=== PATIENT | female | born 1960 | race Hispanic/Latino ===

== ENCOUNTER 2019-08-01 06:53 | Observation (INO) | payer OTHER ==
[2019-07-29 10:02] VITALS: BP 148/64
[2019-07-29 10:04] LABS: BASOPHILS % (AUTO) 1.1 % (0.0-5.0); EOSINOPHILS % (AUTO) 2.5 % (0.0-8.0); HEMATOCRIT 37.8 % (36-48); LYMPHOCYTES % (AUTO) 24.8 % (21.0-51.0); MEAN CORPUSCULAR HEMOGLOBIN 29.4 pg (27.0-33.0); MEAN CORPUSCULAR HGB CONC 33.3 g/dL (32.0-36.0); MEAN CORPUSCULAR VOLUME 88.2 fL (79-99); MONOCYTES % (AUTO) 5.6 % (3.0-13.0); PLATELET COUNT (AUTO) 196 K/uL (130-400); RED BLOOD CELL COUNT(AUTO) 4.29 MIL/uL (4.00-5.50); RED CELL DISTRIBUTION WIDTH 13.6 % (11.0-15.5); WHITE BLOOD COUNT (AUTO) 6.8 K/uL (4.8-10.8)
[2019-07-29 10:23] LABS: CREATININE 0.8 mg/dL (0.5-1.5); POTASSIUM 4.4 mmol/L (3.5-5.1)
[2019-07-29 10:26] LABS: INR 0.96 (0.85-1.15); PROTHROMBIN TIME 10.1 SEC (9.6-11.6)
[2019-08-01] VITALS (24 sets, daily range): BP systolic 107–164; BP diastolic 41–73
[~2019-08-01] VITALS: Ht 236.2 cm; Wt 92.4 kg
[2019-08-01] MEDS: CEFAZOLIN SODIUM 1 GM VIAL IVP SCH ×3 (06:00→17:50)
[~2019-08-01 06:53] MED LIST: CEFU250T87 PO; DOCU-133 PO; ESCI20TA36 PO; FENO160T16 PO; LEVO100 PO; METF-526 PO; NAPR-1023 PO; OLME1TAB40 PO; OMEP40CA37 PO; OXYB5TAB4 PO; SIMV20TA6 PO
[2019-08-01] MEDS ORDERED: SODIUM CHLORIDE 0.9% 1000ML 1,000 ML IV ONE (08:00)
[2019-08-01 08:15] LABS: APPEARANCE,URINE Clear (CLEAR); BILIRUBIN,URINE Negative (NEGATIVE); COLOR,URINE Yellow (YELLOW); GLUCOSE, URINE (UA) Negative (NEGATIVE); KETONES,URINE Negative (NEGATIVE); LEUKOCYTE ESTERASE ,URINE Trace (NEGATIVE); NITRATE,URINE Negative (NEGATIVE); OCCULT BLOOD,URINE Negative (NEGATIVE); PH,URINE 6.5 (5.0-8.0); PROTEIN,URINE Negative (NEGATIVE)
[2019-08-01 08:28] LABS: BACTERIA,URINE Rare /HPF (None Seen); MUCUS,URINE Few LPF (None Seen); RBC,URINE 0-1 /HPF (0-1); SQUAMOUS EPITHELIAL CELL,UR Rare /HPF (0-2)
[2019-08-01] MEDS ORDERED: METOCLOPRAMIDE 10 MG/2 ML VIAL ONE (08:37)
[2019-08-01] MEDS ORDERED: ACETAMINOPHEN EXTRA STRENGTH 500 MG TABLET ONE (08:37)
[2019-08-01] MEDS ORDERED: CELECOXIB 200 MG CAP ONE (08:37)
[2019-08-01] MEDS ORDERED: KETOROLAC TROMETHAMINE 15MG/ML ONE (08:37)
[2019-08-01] MEDS ORDERED: OXYCODONE HCL 10 MG TAB.SR.12H PO ONE (08:38)
[2019-08-01] MEDS ORDERED: CEFAZOLIN SODIUM 1 GM VIAL ONE ×3 (08:59→12:16)
[2019-08-01] MEDS ORDERED: GENTAMICIN SULFATE 240 MG in SODIUM CHLORIDE 0.9% 100 ML IV ONE (09:30)
[2019-08-01] MEDS ORDERED: TRANEXAMIC ACID 1000MG/10ML IV ONE ×2 (10:13→13:35)
[2019-08-01] MEDS ORDERED: LIDOCAINE PF 2% 5ML ABBOJECT ONE ×2 (10:17→12:50)
[2019-08-01] MEDS ORDERED: PROPOFOL 10 MG/ML 20ML VIAL IV ONE (10:18)
[2019-08-01] MEDS ORDERED: MIDAZOLAM HCL 1 MG/ML 2ML VIAL ONE (10:18)
[2019-08-01] MEDS ORDERED: ROCURONIUM 10MG/1ML SYR 10 MG/ML ML ONE (10:18)
[2019-08-01] MEDS ORDERED: FENTANYL CITRATE PF 50 MCG/1 ML 5ML AMP IV ONE ×2 (10:19→12:31)
[2019-08-01] MEDS ORDERED: ROPIVACAINE 0.5% 5MG/ML 30ML IJ ONE (10:29)
[2019-08-01] MEDS ORDERED: EPHEDRINE SULFATE 50 MG/ML AMPULE ONE (10:35)
[2019-08-01] MEDS ORDERED: ONDANSETRON HCL 4 MG/2 ML VIAL ONE (11:43)
[2019-08-01] MEDS ORDERED: DEXAMETHASONE SOD PHOSPHATE 10MG/ML 1ML VIAL ONE (11:43)
[2019-08-01] MEDS ORDERED: NEOSTIGMINE 5MG/5ML SYR IV ONE (11:43)
[2019-08-01] MEDS ORDERED: GLYCOPYRROLATE 1 MG/5 ML SYRINGE ONE (11:43)
[2019-08-01] MEDS ORDERED: KETOROLAC TROMETHAMINE 30MG/ML ONE (11:43)
[2019-08-01] MEDS: ACETAMINOPHEN EXTRA STRENGTH 500 MG TABLET PO SCH ×2 (12:45→19:43)
[2019-08-01] MEDS ORDERED: TRAMADOL HCL 50 MG TABLET PO PRN (12:45)
[2019-08-01] MEDS ORDERED: TEMAZEPAM 15 MG CAPSULE PO PRN (12:45)
[2019-08-01] MEDS ORDERED: CALCIUM CARBONATE 500 MG TABLET PO PRN (12:45)
[2019-08-01] MEDS ORDERED: DiphenhydrAMINE HCL 50 MG/ML VIAL IVP PRN (12:45)
[2019-08-01] MEDS ORDERED: ONDANSETRON HCL 4 MG/2 ML VIAL IVP PRN (12:45)
[2019-08-01] MEDS ORDERED: LIDOCAINE HCL-MPF 1% 2ML VIAL IV PRN (12:45)
[2019-08-01] MEDS ORDERED: KETOROLAC TROMETHAMINE 15MG/ML IV PRN (12:45)
[2019-08-01] MEDS ORDERED: POTASSIUM CHLORIDE 20 MEQ ERTAB PO PRN (12:45)
[2019-08-01] MEDS ORDERED: POTASSIUM CHLORIDE 10% ELIXIR 20 MEQ/15 ML UDCUP PO PRN (12:45)
[2019-08-01] MEDS ORDERED: FERROUS FUMARATE 324 MG TABLET PO PRN (12:45)
[2019-08-01] MEDS ORDERED: POTASSIUM CHLORIDE 20MEQ/100ML 100 ML IV PRN (12:45)
--- NOTE | 2019-08-01 14:12 | NUR ---
POST SURGERY PATIENT RECEIVED FROM PACU IN STABLE CONDITION. SHE HAS BEEN ORIENTED TO ROOM AND USE OF CALL LIGHT. BED IS IN LOWEST POSITION AND LOCKED WITH PERSONAL BELONGINGS WITHIN REACH. POST OP V/S HAVE BEEN INITIATED. IV IS PATENT WITH NO REDNESS OR SWELLING NOTED TO SITE. WILL CONTINUE TO MONITOR.
[2019-08-01] MEDS: SODIUM CHLORIDE 0.9% 1000ML 1,000 ML IV SCH ×2 (14:34→22:39)
[2019-08-01] MEDS: INSULIN HUMULIN R 100 UNIT/ML 3ML SQ SCH ×2 (16:35→21:00)
[2019-08-01] MEDS: OXYCODONE HCL 5 MG TAB PO PRN ×2 (18:01→21:38)
[2019-08-01] MEDS: FAMOTIDINE 20MG TAB 20 MG TAB PO SCH (19:41)
[2019-08-01] MEDS: CELECOXIB 200 MG CAP PO SCH (19:41)
[2019-08-01] MEDS: PREGABALIN 25 MG CAP PO SCH (19:41)
[2019-08-01] MEDS ORDERED: DOCUSATE SODIUM 100 MG CAP PO SCH (21:00)
[2019-08-01] MEDS ORDERED: SIMVASTATIN 20 MG TABLET PO SCH (21:00)
[2019-08-01] MEDS ORDERED: CITALOPRAM 20 MG TABLET PO SCH (21:53)
[2019-08-01] MEDS ORDERED: METFORMIN HCL 500 MG TAB.SR.24H PO SCH (21:54)
[2019-08-02] MEDS: CEFAZOLIN SODIUM 1 GM VIAL IVP SCH (01:51)
[2019-08-02] MEDS: OXYCODONE HCL 5 MG TAB PO PRN ×3 (01:51→16:40)
[2019-08-02 03:10] VITALS: BP 122/50
[2019-08-02 04:20] LABS: HEMATOCRIT 30.5 % (36-48); MEAN CORPUSCULAR HEMOGLOBIN 29.5 pg (27.0-33.0); MEAN CORPUSCULAR HGB CONC 33.3 g/dL (32.0-36.0); MEAN CORPUSCULAR VOLUME 88.5 fL (79-99); PLATELET COUNT (AUTO) 160 K/uL (130-400); RED BLOOD CELL COUNT(AUTO) 3.44 MIL/uL (4.00-5.50); RED CELL DISTRIBUTION WIDTH 13.5 % (11.0-15.5)
[2019-08-02] MEDS: ACETAMINOPHEN EXTRA STRENGTH 500 MG TABLET PO SCH ×2 (04:31→12:22)
[2019-08-02 04:50] LABS: CREATININE 0.8 mg/dL (0.5-1.5); POTASSIUM 4.1 mmol/L (3.5-5.1)
[2019-08-02] MEDS: INSULIN HUMULIN R 100 UNIT/ML 3ML SQ SCH ×3 (06:10→16:30)
[2019-08-02] MEDS ORDERED: LEVOTHYROXINE 100 MCG TABLET PO SCH (06:30)
[2019-08-02 07:54] VITALS: BP 140/57
[2019-08-02] MEDS: CELECOXIB 200 MG CAP PO SCH (08:26)
[2019-08-02] MEDS: FAMOTIDINE 20MG TAB 20 MG TAB PO SCH (08:26)
[2019-08-02] MEDS: PREGABALIN 25 MG CAP PO SCH (08:29)
--- NOTE | 2019-08-02 08:30 | NUR ---
PT STATES SHE FEELS A BIT DIZZY WILL WAIT ON LYRICA , PT STATES SHE HAS NEVER TAKEN LYRICA BEFORE
[2019-08-02] MEDS ORDERED: POLYETHYLENE GLYCOL 3350 17 GM POWD.PACK PO SCH (09:00)
[2019-08-02] MEDS ORDERED: OXYBUTYNIN 5 MG TAB.SR.24H PO SCH (09:00)
[2019-08-02] MEDS ORDERED: APIXABAN 2.5 MG TABLET PO SCH (09:00)
[2019-08-02] MEDS ORDERED: HYDROCHLOROTHIAZIDE PO SCH (09:00)
[2019-08-02] MEDS ORDERED: PANTOPRAZOLE SODIUM 40 MG TABLET.DR PO SCH (09:00)
[2019-08-02] MEDS ORDERED: OLMESARTAN PO SCH (09:00)
[2019-08-02] MEDS ORDERED: FENOFIBRATE 160 MG PO SCH (09:00)
[2019-08-02] MEDS ORDERED: [UNRECOGNIZED DRUG - OTHER] PO SCH (09:00)
--- NOTE | 2019-08-02 10:08 | NUR ---
DCP CM met with pt discussed dc plans. Pt is independent prior to surgery, lives at home with spouse, son, and grandchildren. Pt states she has a shower chair at home. Feels safe to go back home, spouse and son able to assist with transportation and needs as necessary. Pt agreeable for home w/HH and DME, MULU signed for [facility] and [facility] for standard walker and 3 i n1 chair. Faxed order and clinicals, confirmation received. Pt pending approval for [facility], approval and delivery from [facility]. DC plan to home w/HH and DME. CM to cont to follow up. Addendum: 08/02/19 at 1014 by MARK WALKER LVN CM Amended: Links added.
[2019-08-02 11:35] VITALS: BP 145/66
--- NOTE | 2019-08-02 12:55 | NUR ---
CM Note: [facility] approved pt pending to arrange copay and delivery Spoke to Chelly velasquez/[facility] pt has approval for standard walker no wheels and 3 i n1 chair, pending pt to arranged copay of $18. Will deliver equipments once pt arranged copay. Primary nurse aware. CM to co nt to follow up.
--- NOTE | 2019-08-02 12:59 | NUR ---
CM Note: pending approval Spoke to Meaghan velasquez/ , stated Lucina currently out to lunch at this time but will be back shortly, will call CM back as soon as she's back. Pt pending approval. Primary nurse aware. CM to cont to follow up.
--- NOTE | 2019-08-02 14:17 | NUR ---
CM Note: [facility] approved and acceptance Spoke to Lucina velasquez/[facility]. Pt has approval and acceptance. Primary nurse aware. CM to cont to follow up.
--- NOTE | 2019-08-02 14:28 | NUR ---
CM Note: [facility] approved en route to be delivered at this time. Spoke to Karie velasquez/[facility] approved for standard walker and 3 in 1 chair, drive en route to have equipments delivered at this time. As per Karie GANN withink 1 hr. Primary nurse made aware. Pt safe to DC to home via private car once DME delivered. CM to cont to follow up.
--- NOTE | 2019-08-02 14:30 | NUR ---
DR. MINER AWARE PT ACCEPTED FOR [facility]
--- NOTE | 2019-08-02 14:58 | NUR ---
DR LALA SANCHEZ Addendum: 08/02/19 at 1758 by AWILDA VAUGHN RN WRONG PT
[2019-08-02 16:08] VITALS: BP 147/50
[2019-08-02] MEDS ORDERED: HYDR-4457 PO (16:40)
[2019-08-02] MEDS ORDERED: APIX2.5T PO (16:40)
--- NOTE | 2019-08-02 17:43 | NUR ---
[facility] PAGED, PENDING CALL BACK TO GIVE REPORT
--- NOTE | 2019-08-02 18:16 | NUR ---
JEREMIAH - NURSE, GIVEN FULL SBAR REPORT INSTRUCTIONS ON DRESSING CHANGES DONE EDUCATION ON MEDICATIONS DONE REFER TO D/C ORDERS
[2019-08-04] MEDS ORDERED: BISACODYL 10 MG SUPP.RECT RC PRN (12:45)
== END 2019-08-02 18:59 | disposition home health service (06) ==
LOC: DAH 06:53 → DAHIP 06:54 → 4AH 14:24
PROVIDERS: ADMIT Orthopaedic Surgery; ATTEND Orthopaedic Surgery
DX: M17.12 Unilateral primary osteoarthritis, left knee (principal); I10 Essential (primary) hypertension; E11.9 Type 2 diabetes mellitus without complications; E78.5 Hyperlipidemia, unspecified; E03.9 Hypothyroidism, unspecified; E66.9 Obesity, unspecified
CPT/HCPCS: 27447; 36415 ×2; 80048 ×2; 81001; 82948 ×7; 85025; 85027; 85610; 87088; 87641; 88304; 88311; 96365; 96372; 96375 ×2; 96376; 97039; 97116 ×2; 97161; 97530; A4649 ×6; A4930 ×3; A5120; C1763; C1776; G0168; G0378 ×30; G8978; G8979; G8980; G8981; G8982; G8983; J0690 ×6; J1100; J1580; J1815; J1885 ×3; J2001 ×2; J2250; J2405; J2704; J2710; J2765; J2795; J3010 ×2; J3490 ×4; J7030 ×3; 96374

== ENCOUNTER 2019-08-08 18:34 | Emergency (ER) | payer OTHER ==
[~2019-08-08 18:34] MED LIST changes: +APIX2.5T PO; -CEFU250T87 PO; +HYDR-4457 PO; -NAPR-1023 PO
[2019-08-08 19:17] LABS: EOSINOPHILS % (AUTO) 1.9 % (0.0-8.0); LYMPHOCYTES % (AUTO) 16.9 % (21.0-51.0); MEAN CORPUSCULAR HEMOGLOBIN 29.8 pg (27.0-33.0); MEAN CORPUSCULAR HGB CONC 33.7 g/dL (32.0-36.0); MEAN CORPUSCULAR VOLUME 88.6 fL (79-99); MONOCYTES % (AUTO) 8.9 % (3.0-13.0); NEUTROPHILS % (AUTO) 71.3 % (40.0-77.0); PLATELET COUNT (AUTO) 242 K/uL (130-400); RED CELL DISTRIBUTION WIDTH 13.9 % (11.0-15.5); WHITE BLOOD COUNT (AUTO) 10.6 K/uL (4.8-10.8)
[2019-08-08 19:22] LABS: CARBON DIOXIDE 28 mmol/L (21-32); CHLORIDE 101 mmol/L (101-111); CREATININE 0.8 mg/dL (0.5-1.5); GLOMERULAR FILTR. RATE CALC 78 mL/min (>60); GLUCOSE,RANDOM 133 mg/dL (70-105); SODIUM SERUM 139 mmol/L (136-145); UREA NITROGEN, BLOOD 19 mg/dL (7-18)
[2019-08-08 19:34] LABS: ALANINE AMINOTRANSFERASE 20 U/L (12-78); ALBUMIN 3.3 g/dL (3.5-5.0); ASPARTATE AMINOTRANSFERASE 19 U/L (10-37); BILIRUBIN,TOTAL 0.6 mg/dL (0.2-1.0); CREATINE KINASE, TOTAL 42 U/L (21-232); MYOGLOBIN 33 ng/mL (10-92); TOTAL PROTEIN, SERUM 7.1 g/dL (6.0-8.3); TROPONIN I < 0.04 ng/mL (0.00-0.06)
[2019-08-08 19:35] LABS: INR 0.91 (0.85-1.15); PARTIAL THROMBOPLASTIN TIME 23.6 SEC (26.3-35.5); PROTHROMBIN TIME 9.6 SEC (9.6-11.6)
[2019-08-08 19:52] LABS: APPEARANCE,URINE Clear (CLEAR); BILIRUBIN,URINE Negative (NEGATIVE); COLOR,URINE Yellow (YELLOW); GLUCOSE, URINE (UA) Negative (NEGATIVE); KETONES,URINE Negative (NEGATIVE); LEUKOCYTE ESTERASE ,URINE Trace (NEGATIVE); NITRATE,URINE Negative (NEGATIVE); OCCULT BLOOD,URINE Negative (NEGATIVE); PROTEIN,URINE Negative (NEGATIVE)
[2019-08-08 20:07] LABS: BACTERIA,URINE Rare /HPF (None Seen); MUCUS,URINE None Seen LPF (None Seen); SQUAMOUS EPITHELIAL CELL,UR 0-2 /HPF (0-2)
[2019-08-08] MEDS ORDERED: ONDANSETRON HCL 4 MG/2 ML VIAL ONE (20:09)
[2019-08-08] MEDS ORDERED: MORPHINE SULFATE 2 MG/ML 1ML SYG ONE (20:10)
== END 2019-08-08 21:39 | disposition home or self-care (01) ==
LOC: EDH 18:34
DX: G89.18 Other acute postprocedural pain (principal); M25.562 Pain in left knee; R50.9 Fever, unspecified; E11.9 Type 2 diabetes mellitus without complications; I10 Essential (primary) hypertension; E78.00 Pure hypercholesterolemia, unspecified; Z96.653 Presence of artificial knee joint, bilateral
CPT/HCPCS: 36415; 71045; 80053; 81001; 82248; 82550; 83605; 83874; 84484; 85025; 85610; 85730; 87040; 87088; 87804 ×2; 93005; 93971; 96374; 96375; 99285; J2405

== ENCOUNTER 2024-11-26 13:26 | Inpatient (IN) | payer OTHER ==
[2024-11-26] VITALS (18 sets, daily range): BP systolic 112–149; BP diastolic 36–66; PULSE 46–59; RESP 13–26; TEMP 98.2; O2SAT 95–99
[~2024-11-26] VITALS: Ht 149.9 cm; Wt 92.1 kg
[~2024-11-26 13:26] MED LIST changes: -ESCI20TA36 PO; +ESCI20TA38 PO; +OLME-29 PO; -OLME1TAB40 PO; +OMEP40CA21 PO; -OMEP40CA37 PO; +OXYB-66 PO; -OXYB5TAB4 PO; +SIMV-43 PO; -SIMV20TA6 PO
[2024-11-26 14:12] LABS: BASOPHILS # (AUTO) 0.08 K/uL (0.00-0.20); BASOPHILS % (AUTO) 0.9 % (0.0-5.0); EOSINOPHILS # (AUTO) 0.15 K/uL (0.00-0.70); EOSINOPHILS % (AUTO) 1.6 % (0.0-8.0); IMMATURE GRANULOCYTE ABSOLUTE 0.03 K/uL (0-1); LYMPHOCYTES # (AUTO) 1.5 K/uL (1.0-4.8); LYMPHOCYTES % (AUTO) 16.2 % (21.0-51.0); MEAN CORPUSCULAR HEMOGLOBIN 28.9 pg (27.0-33.0); MEAN CORPUSCULAR HGB CONC 32.4 g/dL (32.0-36.0); MEAN CORPUSCULAR VOLUME 89.2 fL (79-99); MONOCYTES # (AUTO) 0.5 K/uL (0.1-1.0); MONOCYTES % (AUTO) 5.7 % (3.0-13.0); NEUTROPHILS # (AUTO) 6.9 K/uL (1.8-7.7); NEUTROPHILS % (AUTO) 75.3 % (40.0-77.0); PLATELET COUNT (AUTO) 209 K/uL (130-400); RED BLOOD CELL COUNT(AUTO) 4.15 MIL/uL (4.00-5.50); RED CELL DISTRIBUTION WIDTH 12.9 % (11.0-15.5); WHITE BLOOD COUNT (AUTO) 9.2 K/uL (4.8-10.8)
--- NOTE | 2024-11-26 14:12 | ERN ---
ED Note History of Present Illness Stated Complaint: UNCONTROLLED HIGH BP Chief Complaint: Hypertension Time Seen by MD: 14:07 Dictation: Patient is a 64-year-old obese female with a complaint right shoulder pain she has had non trauma for two weeks. Also states she is having severe left wrist pain she has had for two months. And needs carpal tunnel surgery by . In addition she says her blood pressure has been high, takes losartan 20/12.5 daily and took it this morning. Finally said her blood sugar has been h igh and she takes her diabetic medications however has not been able to control it she does not have an appointment with her doctor until 11/30/2024. She states she was seen at the emergency room in [facility] yesterday and they did nothing to help me. PATIENT ALSO STATES SHE SIGNED OUT AGAINST MEDICAL ADVICE FROM [facility] YESTERDAY. SHE STATES HER BLOOD PRESSURE THERE WAS GREATER THAN 240 AND THEY HAD HER ON A DRIP THAT WAS BRINGING IT DOWN AND THEN SHE SIGNED OUT AGAINST WHEN IT WENT DOWN TO 160. Allergies: Coded Allergies: No Known Drug Allergies (Unverified Allergy, Unknown, 07/29/19) Home Meds Active Scripts Hydrocodone/Acetaminophen ([place] 5-325 Tablet) 1 Each Tablet, 1-2 EACH PO Q6HPRN PRN for pain, #60 TAB Prov:PHONG MINER MD 08/02/19 Apixaban (Eliquis) 2.5 Mg Tablet, 2.5 MG PO BID, #40 TAB Prov:PHONG MINER MD 08/02/19 Reported Medications Levothyroxine Sodium (Levothroid/Synthroid) 100 Mcg Tab, 100 MCG PO DAILY, TAB 07/29/19 Docusate Sodium (Dulcolax Stool Softener) 100 Mg Capsule, 100 MG PO HS, CAP 07/29/19 Simvastatin (Simvastatin) 20 Mg Tablet, 20 MG PO HS, TAB 07/29/19 Metformin HCl (Metformin HCl ER) 500 Mg Tab.er.24, 500 MG PO HS 07/29/19 Fenofibrate (Fenofibrate) 160 Mg Tablet, 160 MG PO DAILY, TAB 07/29/19 Oxybutynin Chloride (Oxybutynin Chloride ER) 5 Mg Tab.er.24, 5 MG PO DAILY 07/29/19 Escitalopram Oxalate (Escitalopram Oxalate) 20 Mg Tablet, 20 MG PO HS, TAB 07/29/19 Olmesartan/Hydrochlorothiazide (Olmesartan-Hctz 20-12.5 mg Tab) 1 Each Tablet, 1 EACH PO DAILY, TAB 07/29/19 Omeprazole (Omeprazole) 40 Mg Capsule.dr, 40 MG PO DAILY, CAP 07/29/19 Past Medical History Past Medical History: Arthritis, Diabetes-Type II, High Cholesterol, Hypertension Additional Past Medical Hx: CHRONIC BACK/KNEE PAIN Surgical History: Hysterectomy, Cholecystectomy Surgical History Other: BACK, KNEE, SHOUDER History: Not Applicable RN Note Reviewed/Agreed w/PFSH: Yes Review of System Dictation CONSTITUTIONAL: Negative except for HPI HEAD/FACE: Negative except for HPI EENT: Negative except for HPI RESPIRATORY: Negative except for HPI GASTROINTESTINAL/ABDOMINAL: Negative except for HPI GENITOURINARY: Negative except for HPI MUSCULOSKELETAL: Negative except for HPI left wrist and right lateral shoulder pain INTEGUMENTARY: Negative except for HPI NEUROLOGICAL/PSYCH: Negative except for HPI HEMATOLOGIC/LYMPHATIC: Negative except for HPI All Systems Negative, Except as noted above. 13 point review of systems assessed and all negative except for above. Initial Vital Sign VS Vital Signs Date Time Temp Pulse Resp B/P (MAP) Pulse Ox O2 Delivery O2 Flow Rate FiO2 11/26/24 13:41 98.8 69 16 228/93 97 Room Air 0 11/26/24 13:45 21 Physical Exam Dictation Vital Signs reviewed General Appearance: Alert, oriented x 3, moderate, tearful acute distress, well developed, nourished. Morbidly obese Head and Face: non-traumatic. Eyes: PERRL, pink conjunctivas, eyelid no trauma, anterior chamber with arcus senilis. Ears: Pinnas intact and no signs of trauma or erythema ear canals clear and no discharge TM no erythema Nose: No discharge, no bleeding. Oropharynx: Mouth normal, tongue pink, pharynx clear,no erythema, tonsils no exudates, no abscesses noted, mucous membrane moist Neck: Supple, non-tender, no thyromegaly, no masses, no JVD, no bruits Breast:Deferred Chest:No tenderness, no crepitus, no paradoxical movement, no retractions Lungs:Clear, well-ventilated, symmetric, no rales, no wheezing, no rhonchi, no stridor, good breath sounds bilaterally Heart: Regular rate, regular rhythm, no murmur, no gallops Vascular: no peripheral edema, Abdomen: Soft, positive bowel sounds, nondistended, no guarding, nontender, no rebound, no masses no hepatomegaly, no splenomegaly, no Brown's sign, no hernias. Rectal: Deferred Genital: Deferred Neurological: Normal speech, motor function intact, sensory function intact Musculoskeletal: Neck nontender, full range of motion, back nontender, full range of motion, Extremities: Right lateral posterior humerus and shoulder tenderness with palpation, wrists splint to left wrist intact. Neurovascular CMS intact to all extremities. Skin: Color pink, dry, no turgor, no rash, no lacerations, no abrasions, no contusions. Lymphatic: Deferred Results (Laboratory/Radiology) Laboratory/Radiology Laboratory Tests Test 11/26/24 14:00 11/26/24 14:50 11/26/24 17:00 11/26/24 17:03 White Blood Count 9.2 K/uL (4.8-10.8) Red Blood Count 4.15 MIL/uL (4.00-5.50) Hemoglobin 12.0 g/dL (12.0-16.0) Hematocrit 37.0 % (36-48) Mean Corpuscular Volume 89.2 fL (79-99) Mean Corpuscular Hemoglobin 28.9 pg (27.0-33.0) Mean Corpuscular Hemoglobin Concent 32.4 g/dL (32.0-36.0) Red Cell Distribution Width 12.9 % (11.0-15.5) Platelet Count 209 K/uL (130-400) Mean Platelet Volume 12.5 fL (7.5-10.5) H Immature Granulocyte % (Auto) 0.3 % (0-1) Neutrophils (%) (Auto) 75.3 % (40.0-77.0) Lymphocytes (%) (Auto) 16.2 % (21.0-51.0) L Monocytes (%) (Auto) 5.7 % (3.0-13.0) Eosinophils (%) (Auto) 1.6 % (0.0-8.0) Basophils (%) (Auto) 0.9 % (0.0-5.0) Neutrophils # (Auto) 6.9 K/uL (1.8-7.7) Lymphocytes # (Auto) 1.5 K/uL (1.0-4.8) Monocytes # (Auto) 0.5 K/uL (0.1-1.0) Eosinophils # (Auto) 0.15 K/uL (0.00-0.70) Basophils # (Auto) 0.08 K/uL (0.00-0.20) Absolute Immature Granulocyte (auto 0.03 K/uL (0-1) Nucleated Red Blood Cells 0.0 % (0.0-0.19) Sodium Level 137 mmol/L (136-145) Potassium Level 4.1 mmol/L (3.5-5.1) Chloride Level 100 mmol/L (101-111) L Carbon Dioxide Level 25 mmol/L (21-32) Blood Urea Nitrogen 15 mg/dL (7-18) Creatinine 0.8 mg/dL (0.5-1.0) Glomerular Filtration Rate Calc 82 mL/min (>90) Random Glucose 388 mg/dL (70-105) H Hemoglobin A1c 9.9 % (4.0-6.0) H Estimated Average Glucose (eAG) 237 mg/dL (70-126) H Total Calcium 8.8 mg/dL (8.5-10.1) Troponin I High Sensitivity 9 ng/L (4-50) Urine Color STRAW (YELLOW) Urine Appearance CLEAR (CLEAR) Urine pH 5.5 (5.0-8.0) Urine Specific [place] 1.024 (1.001-1.031) Urine Protein NEGATIVE mg/dL (NEGATIVE) Urine Glucose (UA) >=1000 mg/dL (NEGATIVE) H Urine Ketones NEGATIVE mg/dL (NEGATIVE) Urine Occult Blood NEGATIVE (NEGATIVE) Urine Nitrate NEGATIVE (NEGATIVE) Urine Bilirubin NEGATIVE mg/dL (NEGATIVE) Urine Urobilinogen 0.2 mg/dL (0.2-1.0) Urine Leukocyte Esterase NEGATIVE Genesis/uL Urine RBC 0-1 /HPF (0-1) Urine WBC 0-1 /HPF (0-1) Urine Squamous Epithelial Cells RARE /HPF (0-2) Urine Bacteria None /HPF (None Seen) Whole Blood Glucose 170 MG/DL (70-110) H 224 MG/DL (70-110) H ROCEDURE: SHOL 2V RT - SHOULDER COMP 2+VWS RT SHOULDER COMP 2+VWS RT CLINICAL HISTORY: Right lateral shoulder pain, non trauma two weeks COMPARISON: None TECHNIQUE: 2 images were obtained. FINDINGS: No obvious fracture or dislocation. No joint effusion. The soft tissues appear unremarkable. No radiopaque foreign bodies. IMPRESSION: No acute findings. CHEST 1VW CLINICAL HISTORY: ARM PAIN COMPARISON: 08/08/2019 TECHNIQUE: Single view of the chest was obtained. FINDINGS: Lungs are clear. The cardiac size and mediastinum are unremarkable. The bony structures are within normal limits. IMPRESSION: No acute cardiopulmonary process identified. Labs Reviewed?: Yes EKG Comment: EKG SINUS RHYTHM/HEART RATE 78/AXIS NORMAL/QT INTERVAL 502 MILLISECOND ED Course ED Course Orders Procedure Category Date Status Time 12 Lead Ekg Tracing- EKG 11/26/24 Resulted Technical 13:46 Chest 1vw RAD 11/26/24 Resulted 13:46 Cbc With Differential LAB 11/26/24 Complete 13:46 Basic Metabolic Panel LAB 11/26/24 Complete 13:46 Urinalysis Profile LAB 11/26/24 Complete 13:46 Troponin I High LAB 11/26/24 Complete Sensitivity 13:46 Ketorolac PHA 11/26/24 Complete Tromethamine 30mg/Ml 14:30 Morphine 2mg Syg PHA 11/26/24 Complete (Morphine 2mg Syg) 14:30 Ondansetron 4mg Inj PHA 11/26/24 Complete (Zofran 4mg Inj) 14:30 Clonidine Hcl 0.2 Mg PHA 11/26/24 Complete Tablet (Catapres 0. 14:30 Shoulder Comp 2+Vws Rt RAD 11/26/24 Resulted 14:09 Insulin Regular, PHA 11/26/24 Complete Human 3ml (Humulin R 14:49 0.9% Nacl 500ml PHA 11/26/24 Complete Iv.Soln (Ns 500ml 15:00 Nicardipine 25mg Inj PHA 11/26/24 In Process (Cardene 25mg Inj) 15:30 Nicardipine 25mg Inj PHA 11/26/24 Complete (Cardene 25mg Inj) 15:37 Edm Admit Bridge Order ADM 11/26/24 Transmitted 16:02 Vital Signs(Adult CPOE 11/26/24 Transmitted Hospitalist) 16:23 Acetaminophen 325 Tab PHA 11/26/24 In Process (Tylenol 325mg Tab 16:30 Acetaminophen 325 Tab PHA 11/26/24 In Process (Tylenol 325mg Tab 16:30 Ondansetron 4mg Inj PHA 11/26/24 In Process (Zofran 4mg Inj) 16:30 Nurse To Enter Home CPOE 11/26/24 Transmitted Medication 16:23 Admit Orders ADM 11/26/24 Transmitted 16:23 Activity: Bedrest CPOE 11/26/24 Transmitted With Brp 16:23 Consistent Carb DIET 11/26/24 Transmitted Dinner Apply Scds CPOE 11/26/24 Transmitted 16:23 Comprehensive LAB 11/27/24 Verified Metabolic Panel 04:00 Cbc With Differential LAB 11/27/24 Verified 04:00 Erythrocyte LAB 11/27/24 Verified Sedimentation Rate 04:00 Hemoglobin A1c LAB 11/26/24 Complete 16:23 *Nursing CPOE 11/26/24 Transmitted Communication: 16:23 Enoxaparin Sodium 40 PHA 11/27/24 In Process Mg/0.4 Ml (Lovenox) 09:00 Morphine 2mg Syg PHA 11/26/24 In Process (Morphine 2mg Syg) 16:30 0.9%Nacl 1000ml (Ns PHA 11/26/24 In Process 1000ml) 16:30 Hydromorphone 1 Mg PHA 11/26/24 In Process Inj (Dilaudid 1mg Inj 16:30 Famotidine 20mg Vial PHA 11/26/24 In Process (Pepcid 20mg Vial) 21:00 Acetaminophen With PHA 11/26/24 In Process Codeine (Tylenol-Code 16:30 Acetaminophen With PHA 11/26/24 In Process Codeine (Tylenol-Code 16:30 Initiate DEMETRIS 11/26/24 In Process Hyperglycemia Protoco 16:28 Insulin Regular, PHA 11/26/24 In Process Human 3ml (Humulin R 16:30 Initiate Hypoglycemia DEMETRIS 11/26/24 In Process Protocol 16:28 Dextrose 50%-Water PHA 11/26/24 In Process (D50w) 16:30 Glucagon 1mg Kit PHA 11/26/24 In Process (Glucagon 1mg Kit) 16:30 Current Medications Medications (Trade) Dose Ordered Sig/Brit Route PRN Reason Start Time Stop Time Status Last Admin Dose Admin Clonidine HCl (CATApres 0.2 MG TAB) 0.2 mg ONCE ONCE PO 11/26/24 14:30 11/26/24 14:31 DC 11/26/24 14:42 Insulin Human Regular (humuLIN R 100 UNIT/ML 3ML) 15 unit ONCE STAT IV 11/26/24 14:49 11/26/24 14:53 DC 11/26/24 15:11 Ketorolac Tromethamine (toRADol) 30 mg ONCE ONCE IVP 11/26/24 14:30 11/26/24 14:31 DC 11/26/24 14:41 Morphine Sulfate (morPHINE 2MG SYG) 2 mg ONCE ONCE IVP 11/26/24 14:30 11/26/24 14:31 DC 11/26/24 14:41 Nicardipine HCl (CarDENE 25MG INJ) 25 mg STK-MED ONCE IV 11/26/24 15:37 11/26/24 15:41 DC Nicardipine HCl 25 mg/Sodium Chloride 250 ml @ 0 mls/hr PROTOCOL IV 11/26/24 15:30 12/26/24 15:29 11/26/24 15:44 Ondansetron HCl (zoFRAN 4MG INJ) 4 mg ONCE ONCE IVP 11/26/24 14:30 11/26/24 14:31 DC 11/26/24 14:41 Sodium Chloride 500 ml @ 0 mls/hr ONCE ONCE IV 11/26/24 15:00 11/26/24 15:01 DC 11/26/24 15:11 Vital Signs Date Time Temp Pulse Resp B/P (MAP) Pulse Ox O2 Delivery O2 Flow Rate FiO2 11/26/24 16:36 70 21 168/64 97 Room Air* 0 11/26/24 16:17 70 15 199/81 96 Room Air* 0 11/26/24 15:58 98.2 67 18 234/81 97 Room Air* 0 11/26/24 15:45 98.2 67 18 225/66 97 Room Air* 0 11/26/24 15:44 225/66 11/26/24 14:58 98.2 65 18 230/88 97 Room Air* 0 11/26/24 14:42 239/100 11/26/24 13:45 98.2 65 16 236/76 98 Room Air* 0 11/26/24 13:41 98.8 69 16 228/93 97 Room Air 0 FIFTEEN 20, REPEAT BLOOD PRESSURE 244 SYSTOLIC AFTER CLONIDINE 0.2. WE WILL PATIENT PATIENT ON CARDENE DRIP AND SHE WILL BE ADMITTED TO THE HOSPITAL FOR HYPERTENSIVE CRISIS 1600 SPOKE WITH MARY SANCHEZ HOSPITALIST REVIEWED EKG LABS CHEST X-RAY AND INTERVENTIONS FOR UNCONTROLLED DIABETES AND HYPERTENSIVE CRISIS. ALL QUESTIONS ANSWERED HEART Score Response (Comments) Value EKG: Repolarization changes 1 Risk Factors: 3+ risk factors (+2) 2 Initial Troponin: Normal limit (0) 0 Total 3 Medical Decision Making MDM MDM: DIFFERENTIAL DIAGNOSIS: ACS/AMI/PNEUMONIA/BRONCHITIS/ELECTROLYTE IMBALANCE/DEHYDRATION/UNCONTROLLED DIABETES/ANXIETY RATIONALE: TESTS CONSIDERED AND ORDERED SECONDARY TO SHARED DECISION MAKING INCLUDE: LABS, ECG AND RADIOLOGY PREVIOUS OUTSIDE RECORDS REVIEWED: OLD ER VISITS. REVIEWED RISK OF COMPLICATION AND/OR MORBIDITY OR MORTALITY OF PATIENT MANAGEMENT: MODERATE TO SEVERE MEDICATIONS-PER MEDICATION RECONCILIATION SEE NOTES NEED FOR HOSPITALIZATION: PATIENT DOES MEET CRITERIA FOR HOSPITALIZATION. PATIENT WILL NEED ICU ADMISSION ON CARDENE DRIP FOR HYPERTENSIVE CRISIS AND DIABETIC MANAGE NEED FOR EMERGENCY MAJOR/MINOR SURGERY: NO THERE ARE NO SOCIAL CONCERNS WITH THIS PATIENT. PATIENT NONCOMPLIANT WITH HER MED PRESCRIPTION DRUG MANAGEMENT PRESCRIPTIONS WILL INCLUDE SYMPTOMATIC CARE PATIENT'S PRIOR EXTERNAL MEDICAL RECORDS FROM OTHER ER VISITS WERE REVIEWED BY ME INDICATED. PRIOR TESTING AND RESULTS FROM PREVIOUS VISITS WERE REVIEWED. PRIOR TESTS WERE TAKEN INTO ACCOUNT WITH MEDICAL DECISION MAKING AND RESOURCE UTILIZATION, INDEPENDENT HISTORIAN/HISTORIANS WERE USED TO OBTAIN COMPLETE MEDICAL HISTORY. I INDEPENDENTLY INTERPRETED THE TEST THAT WERE PERFORMED, RESULTS WERE REVIEWED BY ME AND CONSIDERED FINDINGS ON RADIOLOGY IF ORDERED. MEDICAL MANAGEMENT AND EXAMINATION INTERPRETATION DISCUSSIONS WERE HAD BY ME WITH OTHER QUALIFIED HEALTHCARE PROFESSIONALS INDICATED FOR THE PATIENT'S CARE. Critical Care Note Critical Time: 30 minutes (PATIENT CAME IN HYPERTENSIVE WITH SYSTOLIC BLOOD PRESSURES TO 30S TO 240S. SHE WAS GIVEN CLONIDINE 0.2 P.O. 30 MINUTES LATER SYSTOLIC BLOOD PRESSURE IS 244/100. I WILL INITIATE CARDENE DRIP TO CONTROL HER BLOOD PRESSURE SHE WILL BE ADMITTED TO THE HOSPITAL AND PATIENT WILL BE MONITORED CLOSELY TO KEEP HER BLOOD PRESSURE LESS THAN 170 SYSTOLIC.) DX & DISP Disposition: Inpatient Decision to Admit Time: 15:34 Departure Impression: Primary Impression: Hypertensive crisis Additional Impressions: Uncontrolled diabetes mellitus, Arthralgia, Obesity Critical Time: 30 minutes (Critical Care Procedure NoteAuthorized and Performed by: meTotal critical care time: Approximately 36 minutesDue to a high probability of clinically significant, life threatening deterioration, the patient required my highest level of preparedness to intervene emergently and I personally spent this critical care time directly and personally managing the patient. This critical care time included obtaining a history; examining the patient; pulse oximetry; ordering and review of studies; arranging urgent treatment with development of a management plan; evaluation of patient's response to treatment; frequent reassessment; and, discussions with other providers.This critical care time was performed to assess and manage the high probability of imminent, life-threatening deterioration that could result in multi-organ failure. It was exclusive of separately billable procedures and tr eating other patients and teaching time.Please see MDM section and the rest of the note for further information on patient assessment and treatment.) Condition: Critical Referrals: JORDAN ARMANDO (PCP) Time of Disposition: 15:34 I have reviewed the case, and I agree with, Diagnosis and Plan I performed a substantive portion of the visit. I have reviewed and personally made and approve the management plan that is documented in the notes by myself with KURTIS/resident. I acknowledged full responsibility for the patient's management plan. SHALONDA GALARZA NP Nov 26, 2024 14:12 CECILLE THOMPSON DO Nov 26, 2024 17:20
[2024-11-26 14:26] LABS: CREATININE 0.8 mg/dL (0.5-1.0); POTASSIUM 4.1 mmol/L (3.5-5.1)
--- NOTE | 2024-11-26 14:27 | HMCIMG ---
CHEST 1VW CLINICAL HISTORY: ARM PAIN COMPARISON: 08/08/2019 TECHNIQUE: Single view of the chest was obtained. FINDINGS: Lungs are clear. The cardiac size and mediastinum are unremarkable. The bony structures are within normal limits. IMPRESSION: No acute cardiopulmonary process identified.
--- NOTE | 2024-11-26 14:32 | HMCIMG ---
SHOULDER COMP 2+VWS RT CLINICAL HISTORY: Right lateral shoulder pain, non trauma two weeks COMPARISON: None TECHNIQUE: 2 images were obtained. FINDINGS: No obvious fracture or dislocation. No joint effusion. The soft tissues appear unremarkable. No radiopaque foreign bodies. IMPRESSION: No acute findings.
[2024-11-26] MEDS: ketOROlac 30MG VIAL (30MG/ML) IVP ONE (14:41)
[2024-11-26] MEDS: morPHINE 2 MG SYG IVP ONE (14:41)
[2024-11-26] MEDS: ondanSETRON 4MG INJ IVP ONE (14:41)
[2024-11-26] MEDS: cloNIDine HCL 0.2 MG TABLET PO ONE (14:42)
[2024-11-26 15:07] LABS: ADD UA MICROSCOPIC YES; APPEARANCE,URINE CLEAR (CLEAR); BILIRUBIN,URINE NEGATIVE (NEGATIVE); COLOR,URINE STRAW (YELLOW); GLUCOSE, URINE (UA) >=1000 mg/dL (NEGATIVE); KETONES,URINE NEGATIVE (NEGATIVE); LEUKOCYTE ESTERASE ,URINE NEGATIVE Leu/uL (NEGATIVE); NITRATE,URINE NEGATIVE (NEGATIVE); OCCULT BLOOD,URINE NEGATIVE (NEGATIVE); PH,URINE 5.5 (5.0-8.0); PROTEIN,URINE NEGATIVE (NEGATIVE); UROBILINOGEN,URINE 0.2 mg/dL (0.2-1.0)
[2024-11-26 15:08] LABS: MUCUS,URINE RARE LPF (None Seen); RBC,URINE 0-1 /HPF (0-1); SQUAMOUS EPITHELIAL CELL,UR RARE /HPF (0-2); WBC,URINE 0-1 /HPF (0-1)
[2024-11-26] MEDS: 0.9% NACL 500ML IV.SOLN 500 ML IV ONE (15:11)
[2024-11-26] MEDS: INSULIN humuLIN R 100 UNIT/ML 3ML IV STA (15:11)
[2024-11-26] MEDS: niCARDIpine 25MG INJ 25 MG in 0.9% NACL 250ML 240 ML IV SCH (15:44)
[2024-11-26] MEDS: niCARDIpine 25MG INJ IV ONE (15:44)
--- NOTE | 2024-11-26 16:17 | EKG ---
[facility] Test Date: 2024-11-26 Test Time: 13:47:35 Pat Name: ARIANNE CORONA Department: [facility] Room: Gender: F Rn Otolaryngology: 3229 : 1960 Requested By: CECILLE THOMPSON Order Number: [id number] Reading MD: Timoteo Herbert Measurements Intervals [place] Rate: 78 P: 40 [place]: 139 QRS: 32 QRSD: 90 T: 38 QT: 441 QTc: 502 Interpretive Statements Sinus rhythm Prolonged QT interval Compared to ECG 08/08/2019 19:12:59 Prolonged QT interval now present Electronically Signed On 11-26-2024 16:51:18 ACCOUNT EXECUTIVE SALES REPRESENTATIVE by Timoteo Herbert Please click the below link to view image of tracing.
--- NOTE | 2024-11-26 16:23 | HP ---
[facility] HISTORY AND PHYSICAL Date of Service: Nov 26, 2024 Time of Service: 16:23 HISTORY OF PRESENT ILLNESS: [ The patient is a 65-year-old obese female who presented to the ER with complaints of persistent right shoulder pain without trauma for two weeks and s evere left wrist pain that she has been experiencing for two months. She reports that she has been evaluated for carpal tunnel surgery by Dr. Jimenez. However, the surgery has not yet been scheduled. On evaluation in the ER, her blood pressure reading was of 225/66 which is indicative of hypertensive crisis, she takes losartan 20-12.5 mg daily, which previously controlled her blood pressure until recently, per patient. Furthermore, blood sugar initial level was 388 mg/dL and her urine showed glucose levels greater than 1000 mg/dL, indicating uncontrolled diabetes. A right shoulder Xray was performed which show no obvious fracture or dislocation. No joint effusion. Unremarkable soft tissues. No radiopaque foreign bodies. Indicating no acute findings. In the ER, patient was started on Cardene drip for blood pressure management. Due to the need for continuous intravenous antihypertensive therapy. She will be admitted to the intensive care unit ICU and critical Care will be consulted for further management. ] REVIEW OF SYSTEMS CONSTITUTIONAL: Denies fevers, chills, or night sweats. No unintentional weight loss reported. NEUROLOGICAL: Denies headache, amaurosis fugax, motor weakness, sensory deficit, vertigo/spinning sensation, gait abnormalities, or tremors. ENT: No hearing loss, otalgia, otorrhea, rhinitis, rhinorrhea, hoarseness, or sore throat. CARDIOVASCULAR: Denies any exertional angina, dyspnea on exertion, orthopnea, paroxysmal nocturnal dyspnea, palpitations, life-threatening arrhythmias, claudication. PULMONARY: Denies any shortness of breath, cough, phlegm/sputum, hemoptysis, pleuritic chest pain. SLEEP: Denies morning headaches, daytime somnolence or napping. Denies difficulty falling asleep, staying asleep, waking from sleep. Denies knowledge of snoring. GASTROINTESTINAL: Denies any type of dysphagia to either liquids or solids. Denies nausea, vomiting, pyrosis, early satiety, abdominal pain, diarrhea, constipation, or changes in stool consistency or caliber. Denies coffee-ground emesis, hematemesis, hematochezia, or melanotic stools. GENITOURINARY: Denies frequency, urgency, nocturia, hematuria or incontinence (Storage/Irritative symptoms.) Low urinary stream, straining to void, urinary intermittency or hesitancy, splitting of the voiding stream, terminal dribbling. ENDOCRINOLOGIC: Denies polyuria, polydipsia, polyphagia or heat/cold intolerances. HEMATOLOGIC: Denies thrombophilia/previous clots, or coagulopathy/bleeding disorders. ONCOLOGIC: Denies personal history of malignancy. DERMATOLOGIC: Denies rashes or pruritus. PSYCHIATRIC: Denies any suicidal or homicidal ideation. Denies hallucinations. PAST MEDICAL HISTORY: [Arthritis, Diabetes-Type II, High Cholesterol, Hypertension, carpel tunnel CHRONIC BACK/KNEE PAIN ] PAST SURGICAL HISTORY: [ Bilateral total knee replacement Back surgery 2001 Shoulder surgery Hysterectomy 1982 Cholecystectomy ] PAST SOCIAL HISTORY: [ Patient lives at home with . She denies the use of tobacco products, alcohol or illicit drugs. Patient ambulates without assistance and is independent with ADLs. ] FAMILY HISTORY: [ Non-reported ] Coded Allergies: No Known Drug Allergies (Unverified Allergy, Unknown, 07/29/19) PHYSICAL EXAM GENERAL APPEARANCE: The patient is awake, alert, and oriented, in no acute cardiopulmonary distress. NEUROLOGICAL: Cranial nerves II-XII grossly intact. Motor is 5/5 in bilateral upper and lower extremities proximal to distal. No sensory deficits. HEENT: Face is symmetric. Pupils are equal and reactive. Extraocular movements are intact. NECK: Supple. No JVD. No thyromegaly. No submental, submandibular, pre- /postauricular, occipital or supraclavicular lymphadenopathy. CHEST: Normal chest expansion. No Telemetry. LUNGS: Absence of any rales, rhonchi or any wheezing. CARDIOVASCULAR: Regular. S1 and S2 normal. No appreciable rubs, murmurs or gallops. ABDOMEN: Soft, nontender, and nondistended. There is no rebound, voluntary guarding, or rigidity. : Deferred. No Thapa. EXTREMITIES: Non-edematous and not cyanotic. No clubbing. Good capillary refill. SKIN: No skin breakdown. Vital Sign (Last 24 Hours) 11/26/24 15:58 Temp 98.2 Pulse 67 Resp 18 B/P (MAP) 234/81 Pulse Ox 97 O2 Delivery Room Air* O2 Flow Rate 0 FiO2 21 LABS: Laboratory: Test 11/26/24 14:50 11/26/24 14:00 Range/Units Urine Color STRAW YELLOW Urine Appearance CLEAR CLEAR Urine pH 5.5 5.0-8.0 Urine Specific [place] 1.024 1.001-1.031 Urine Protein NEGATIVE NEGATIVE mg/dL Urine Glucose (UA) >=1000 H NEGATIVE mg/dL Urine Ketones NEGATIVE NEGATIVE mg/dL Urine Occult Blood NEGATIVE NEGATIVE Urine Nitrate NEGATIVE NEGATIVE Urine Bilirubin NEGATIVE NEGATIVE mg/dL Urine Urobilinogen 0.2 0.2-1.0 mg/dL Urine Leukocyte Esterase NEGATIVE NEGATIVE Genesis/uL Urine RBC 0-1 0-1 /HPF Urine WBC 0-1 0-1 /HPF Urine Squamous Epithelial Cells RARE 0-2 /HPF Urine Bacteria None None Seen /HPF White Blood Count 9.2 4.8-10.8 K/uL Red Blood Count 4.15 4.00-5.50 MIL/uL Hemoglobin 12.0 12.0-16.0 g/dL Hematocrit 37.0 36-48 % Mean Corpuscular Volume 89.2 79-99 fL Mean Corpuscular Hemoglobin 28.9 27.0-33.0 pg Mean Corpuscular Hemoglobin Concent 32.4 32.0-36.0 g/dL Red Cell Distribution Width 12.9 11.0-15.5 % Platelet Count 209 130-400 K/uL Mean Platelet Volume 12.5 H 7.5-10.5 fL Immature Granulocyte % (Auto) 0.3 0-1 % Neutrophils (%) (Auto) 75.3 40.0-77.0 % Lymphocytes (%) (Auto) 16.2 L 21.0-51.0 % Monocytes (%) (Auto) 5.7 3.0-13.0 % Eosinophils (%) (Auto) 1.6 0.0-8.0 % Basophils (%) (Auto) 0.9 0.0-5.0 % Neutrophils # (Auto) 6.9 1.8-7.7 K/uL Lymphocytes # (Auto) 1.5 1.0-4.8 K/uL Monocytes # (Auto) 0.5 0.1-1.0 K/uL Eosinophils # (Auto) 0.15 0.00-0.70 K/uL Basophils # (Auto) 0.08 0.00-0.20 K/uL Absolute Immature Granulocyte (auto 0.03 0-1 K/uL Nucleated Red Blood Cells 0.0 0.0-0.19 % Sodium Level 137 136-145 mmol/L Potassium Level 4.1 3.5-5.1 mmol/L Chloride Level 100 L 101-111 mmol/L Carbon Dioxide Level 25 21-32 mmol/L Blood Urea Nitrogen 15 7-18 mg/dL Creatinine 0.8 0.5-1.0 mg/dL Glomerular Filtration Rate Calc 82 >90 mL/min Random Glucose 388 H 70-105 mg/dL Total Calcium 8.8 8.5-10.1 mg/dL Troponin I High Sensitivity 9 4-50 ng/L Current Medications Medications (Trade) Dose Ordered Sig/Brit Route PRN Reason Start Time Stop Time Status Last Admin Dose Admin Insulin Human Regular (humuLIN R 100 UNIT/ML 3ML) 15 unit ONCE STAT IV 11/26/24 14:49 11/26/24 14:53 DC 11/26/24 15:11 15 UNIT Nicardipine HCl 25 mg/Sodium Chloride 250 ml @ 0 mls/hr PROTOCOL IV 11/26/24 15:30 12/26/24 15:29 11/26/24 15:44 25 MLS/HR DIAGNOSTICS / RADIOLOGY: [address] [address] [place] [address] IMAGING REPORT Signed PATIENT: ARIANNE CORONA MR#: [id number] : 1960 SEX: F AGE: 64 LOCATION: [facility] ORDER 1348 STATUS: [facility] REPORT#: [id number] SERVICE 1346 REASON: ARM PAIN ORDERING PHYSICIAN: CECILLE THOMPSON DO PROCEDURE: CXR1VW - CHEST 1VW CHEST 1VW CLINICAL HISTORY: ARM PAIN COMPARISON: 08/08/2019 TECHNIQUE: Single view of the chest was obtained. FINDINGS: Lungs are clear. The cardiac size and mediastinum are unremarkable. The bony structures are within normal limits. IMPRESSION: No acute cardiopulmonary process identified. DICTATED BY: SUREKHA AMARO DO DATE: 11/26/241423 ELECTRONICALLY SIGNED BY: SUREKHA AMARO DO DATE: 11/26/241426 [facility] [address] [place] [address] IMAGING REPORT Signed PATIENT: ARIANNE CORONA MR#: [id number] : 1960 SEX: F AGE: 64 LOCATION: [facility] ORDER 08 STATUS: REG ER REPORT#: [id number] SERVICE 08 REASON: Right lateral shoulder pain, non trauma two weeks ORDERING PHYSICIAN: SHALONDA GALARZA NP PROCEDURE: SHOL 2V RT - SHOULDER COMP 2+VWS RT SHOULDER COMP 2+VWS RT CLINICAL HISTORY: Right lateral shoulder pain, non trauma two weeks COMPARISON: None TECHNIQUE: 2 images were obtained. FINDINGS: No obvious fracture or dislocation. No joint effusion. The soft tissues appear unremarkable. No radiopaque foreign bodies. IMPRESSION: No acute findings. DICTATED BY: SUREKHA AMARO DO DATE: 11/26/241428 ELECTRONICALLY SIGNED BY: SUREKHA AMARO DO DATE: 11/26/24 143 ] ASSESSMENT: [ Hypertensive Crisis POA Uncontrolled DM POA Chronic right shoulder pain POA Persistent left writs pain POA History of left carpel tunnel ] PLAN: [Admit the patient to ICU for close monitoring. Continue the Cardene infusion initiated in the emergency department. IV fluids: Normal saline at 75 mL per hour Follow-up with the critical Care consulted titrate infusion to gradually reduce blood pressure. ] Check hemoglobin A1c, check glucometer checks before meals and at bedtime, and start on insulin sliding scale 2 Add when necessary meds for nausea, vomiting, pain, constipation, insomnia. Add Lovenox and famotidine for DVT and GI prophylaxis. Current Medications Medications (Trade) Dose Ordered Sig/Brit Route PRN Reason Start Time Stop Time Status Last Admin Nicardipine HCl 25 mg/Sodium Chloride 250 ml @ 0 mls/hr PROTOCOL IV 11/26/24 15:30 12/26/24 15:29 11/26/24 15:44 Acetaminophen (TYLenol 325MG TAB) 650 mg Q6H PRN PO TEMPERATURE GREATER THAN 101.5 11/26/24 16:30 12/26/24 16:29 Acetaminophen (TYLenol 325MG TAB) 650 mg Q4H PRN PO MILD PAIN (1-3) 11/26/24 16:30 12/26/24 16:29 Ondansetron HCl (zoFRAN 4MG INJ) 4 mg Q6H PRN IV NAUSEA/VOMITING 11/26/24 16:30 12/26/24 16:29 Enoxaparin Sodium (Lovenox) 40 mg DAILY SQ 11/27/24 09:00 12/27/24 08:59 Morphine Sulfate (morPHINE 2MG SYG) 2 mg Q4H PRN IV MODERATE PAIN (4-6) 11/26/24 16:30 12/03/24 16:29 Sodium Chloride 1,000 ml @ 75 mls/hr [id number] IV 11/26/24 16:30 12/26/24 16:29 11/26/24 17:12 Hydromorphone HCl (DiLAUDid 1MG INJ) 0.5 mg Q4H PRN IV SEVERE PAIN (7-10) 11/26/24 16:30 12/01/24 16:29 Famotidine (Pepcid 20mg Vial) 20 mg DAILY IV 11/26/24 21:00 12/26/24 20:59 Acetaminophen/ Codeine Phosphate (TYLenol-coDEINE TAB) 1 tab Q6H PRN PO MODERATE PAIN (4-6) 11/26/24 16:30 12/26/24 16:29 Acetaminophen/ Codeine Phosphate (TYLenol-coDEINE TAB) 2 tab Q6H PRN PO SEVERE PAIN (7-10) 11/26/24 16:30 12/26/24 16:29 Insulin Human Regular (humuLIN R 100 UNIT/ML 3ML) INSULIN SLIDING SCAL... ACHS SQ 11/26/24 16:30 12/26/24 16:29 11/26/24 17:12 Dextrose (D50w) 50 ml AD PRN IV HYPOGLYCEMIA PROTOCOL 11/26/24 16:30 12/26/24 16:29 Glucagon (Glucagon 1mg Kit) 1 mg AD PRN IM HYPOGLYCEMIA PROTOCOL 11/26/24 16:30 12/26/24 16:29 ADVANCED CARE PLANNING 1. Which of the following were discussed? Hospice Care - Yes / No Therapeutic options - Yes / No Advance Directives - Yes / No Other discussions - 2. Discussed with who? patient and 3. Voluntary nature of this service was explained to the patient? Yes / No 4. Amount of time spent - ___30 min ____ 5. Reviewed by Physician? (if this service was performed by NPP) Yes / No ATTESTATION BY PHYSICIAN I have seen and examined the patient. I reviewed the documentation, medical decision making, and treatment plan as noted by the mid-level provider above. I agree with the findings and plan of care. JASON HUYNH MD, [facility] Nov 26, 2024 16:23
[2024-11-26] MEDS ORDERED: acetaMINOPHEN 325 MG TAB PO PRN (16:30)
[2024-11-26] MEDS ORDERED: ondanSETRON 4MG INJ IV PRN (16:30)
[2024-11-26] MEDS ORDERED: GLUCAGON 1MG KIT 1 MG ML IM PRN (16:30)
[2024-11-26] MEDS ORDERED: hydroMORPHone 1 MG INJ IV PRN (16:30)
[2024-11-26] MEDS ORDERED: DEXTROSE 50%-WATER 50 ML DISP.SYRIN IV PRN (16:30)
[2024-11-26] MEDS ORDERED: morPHINE 2 MG SYG IV PRN (16:30)
--- NOTE | 2024-11-26 16:38 | NUR ---
CARDENE DRIP DECREASED TO 5MG/HR
[2024-11-26 16:53] LABS: HEMOGLOBIN A1C 9.9 % (4.0-6.0)
[2024-11-26] MEDS: 0.9%NACL 1000ML 1,000 ML IV SCH (17:12)
[2024-11-26] MEDS: INSULIN humuLIN R 100 UNIT/ML 3ML SQ SCH (17:12)
[2024-11-26] MEDS ORDERED: DULO30CA52 PO (19:03)
[2024-11-26] MEDS ORDERED: METF-444 PO (19:03)
[2024-11-26] MEDS ORDERED: SEMA1PEN3 SQ (19:03)
[2024-11-26] MEDS ORDERED: PIOG30TA70 PO (19:03)
[2024-11-26] MEDS ORDERED: ERGO500093 PO (19:03)
[2024-11-26] MEDS ORDERED: ATOR20TA65 PO (19:03)
--- NOTE | 2024-11-26 19:34 | NUR ---
BENCHMARK B[employer] CALLED BACK AND NOTIFIED OF CONSULT.
[2024-11-26] MEDS: citaLOPram 20 MG TABLET PO SCH (20:29)
[2024-11-26] MEDS: FAMOTIDINE 20MG VIAL IV SCH (20:29)
--- NOTE | 2024-11-26 21:47 | CONS ---
[facility] CONSULTATION NOTE Date Patient Seen: Nov 26, 2024 Time of Visit: 21:47 Supervising Physician: Dr. Leeroy Machuca Reason for Consultation: hypertensive crisis on Cardene drip Primary Care Physician: JORDAN ARMANDO (PCP) Outpatient Specialists: Inpatient Consults: [facility], critical care team PROBLEM LIST: Hypertensive Crisis, POA Uncontrolled diabetes mellitus, POA Acute intractable right shoulder pain, POA Acute on chronic epigastric pain, POA Persistent left writs pain, POA History of left carpel tunnel Chronic pain syndrome Chronic problem list: Arthritis, hypothyroidism, anxiety, GERD, diabetes mellitus type 2, hypercholesteremia, hypertension, carpal tunnel, chronic back/knee pain. HPI: Ms. Cantrell is a 65-year-old obese female arthritis, hypothyroidism, anxiety, GERD, diabetes mellitus type 2, hypercholesteremia, hypertension, carpal tunnel, chronic back/knee pain who presented to the ED for evaluation of severe persistent right shoulder pain without trauma onset two weeks and severe left wrist pain that she has been experiencing for two months. The patient also reported that she had epigastric pain and chronic history of "really bad gastritis". She reports that she has been evaluated for carpal tunnel surgery by Dr. Jimenez. The surgery has not yet been scheduled. On arrival to ED, her blood pressure reading was 225/66. ED administered clonidine 0.2 mg p.o. and blood pressure minimally improved to 244/100. Patient reports that she takes losartan HCTZ 20-12.5 mg daily, which controls her blood pressure well in the 120 systolic. Furthermore, blood sugar initial level was 388 mg/dL and her urine showed glucose levels greater than 1000 mg/dL, indicating uncontrolled diabetes. Patient reports that at home her blood glucose are 120s. A right shoulder Xray was performed which show no obvious fracture or dislocation. No joint effusion. Unremarkable soft tissues. No radiopaque foreign bodies. Indicating no acute findings. In the ED, patient was started on Cardene drip for blood pressure management. Due to the need for continuous intravenous antihypertensive therapy. She was admitted to the intensive care unit ICU and [facility] Critical Care was consulted for critical care management. I went to evaluate patient at bedside in room 216. Patient was sleeping, appeared comfortable, in no distress. Breathing was even and unlabored. Patient was off of Cardene and blood pressure was in the low 100s to 120s systolic. The patient denied any pain to the shoulder, chest pain, shortness of breath, any other pain, problem or concern. I informed her of labs, diagnostics, and plan of care. The patient verbalizes understanding and is in agreement with the plan. Plan and assessment are listed below. PAST MEDICAL HX: see above PAST SURGICAL HX: Bilateral total knee replacement Back surgery 2002 Shoulder surgery Hysterectomy 1982 Cholecystectomy SOCIAL HISTORY: No tobacco, ETOH, or illicit drug use. Patient lives at home with . The patient ambulates without assistance and is independent with ADLs. Coded Allergies: No Known Drug Allergies (Unverified Allergy, Unknown, 07/29/19) REVIEW OF SYSTEMS: 12 point ROS reviewed with patient. Pertinent positives mentioned above. Otherwise negative. PHYSICAL EXAM: GENERAL: Alert, awake oriented x 3 HEENT: EOMI, Sclera non icteric, moist mucosa NECK: Supple, no JVD, trachea midline LUNGS: Clear breath sounds bilaterally. No wheezes HEART: Regular rate and rhythm. Normal S1 and S2, without murmurs ABD: Abdomen soft, nontender. Bowel sounds present EXT: No clubbing cyanosis or edema. NEURO: Alert and oriented X3, follows commands Vital Signs (last 8hr) Date Time Temp Pulse Resp B/P (MAP) Pulse Ox O2 Delivery O2 Flow Rate FiO2 11/26/24 21:00 51 24 124/50 94 Room Air 11/26/24 20:00 98.2 54 24 112/36 93 Room Air 11/26/24 20:00 95 Room Air* 0 11/26/24 19:00 53 13 126/66 95 Room Air 11/26/24 18:45 99 Room Air* 0 11/26/24 18:30 58 16 131/56 97 11/26/24 18:15 98.2 59 25 143/61 95 11/26/24 17:48 98.2 70 21 143/61 97 Room Air* 0 11/26/24 17:30 63 21 145/52 97 Room Air* 0 11/26/24 17:20 70 21 164/51 97 Room Air* 0 11/26/24 16:45 70 21 168/64 97 Room Air* 0 11/26/24 16:36 70 21 168/64 97 Room Air* 0 11/26/24 16:17 70 15 199/81 96 Room Air* 0 11/26/24 15:58 98.2 67 18 234/81 97 Room Air* 0 11/26/24 15:45 98.2 67 18 225/66 97 Room Air* 0 11/26/24 15:44 225/66 11/26/24 14:58 98.2 65 18 230/88 97 Room Air* 0 11/26/24 14:42 239/100 LABS: Hematology Labs: Test 11/26/24 14:00 Range/Units White Blood Count 9.2 4.8-10.8 K/uL Red Blood Count 4.15 4.00-5.50 MIL/uL Hemoglobin 12.0 12.0-16.0 g/dL Hematocrit 37.0 36-48 % Mean Corpuscular Volume 89.2 79-99 fL Mean Corpuscular Hemoglobin 28.9 27.0-33.0 pg Mean Corpuscular Hemoglobin Concent 32.4 32.0-36.0 g/dL Red Cell Distribution Width 12.9 11.0-15.5 % Platelet Count 209 130-400 K/uL Mean Platelet Volume 12.5 H 7.5-10.5 fL Immature Granulocyte % (Auto) 0.3 0-1 % Neutrophils (%) (Auto) 75.3 40.0-77.0 % Lymphocytes (%) (Auto) 16.2 L 21.0-51.0 % Monocytes (%) (Auto) 5.7 3.0-13.0 % Eosinophils (%) (Auto) 1.6 0.0-8.0 % Basophils (%) (Auto) 0.9 0.0-5.0 % Neutrophils # (Auto) 6.9 1.8-7.7 K/uL Lymphocytes # (Auto) 1.5 1.0-4.8 K/uL Monocytes # (Auto) 0.5 0.1-1.0 K/uL Eosinophils # (Auto) 0.15 0.00-0.70 K/uL Basophils # (Auto) 0.08 0.00-0.20 K/uL Absolute Immature Granulocyte (auto 0.03 0-1 K/uL Nucleated Red Blood Cells 0.0 0.0-0.19 % Chemistry Labs: Test 11/26/24 20:18 11/26/24 14:00 Range/Units Whole Blood Glucose 209 H 70-110 MG/DL Sodium Level 137 136-145 mmol/L Potassium Level 4.1 3.5-5.1 mmol/L Chloride Level 100 L 101-111 mmol/L Carbon Dioxide Level 25 21-32 mmol/L Blood Urea Nitrogen 15 7-18 mg/dL Creatinine 0.8 0.5-1.0 mg/dL Glomerular Filtration Rate Calc 82 >90 mL/min Random Glucose 388 H 70-105 mg/dL Hemoglobin A1c 9.9 H 4.0-6.0 % Estimated Average Glucose (eAG) 237 H 70-126 mg/dL Total Calcium 8.8 8.5-10.1 mg/dL Troponin I High Sensitivity 9 4-50 ng/L DIAGNOSTICS / RADIOLOGY RESULTS: [ ] PLAN Patient was admitted to ICU by the [facility] team with team as critical care management. Patient is off of Cardene, we will continue monitoring in ICU tonight. Plan is to transfer to [facility] in the morning. Continuous cardiac monitoring and pulse oximetry monitoring. Oxygen therapy as needed to keep SpO2 equal to greater than 92%. Pain management. Reconciled home medications: Atorvastatin, duloxetine, vitamin D2, escitalopram, levothyroxine, olmesartan/hydrochlorothiazide. P.r.n. medications for nausea, vomiting, constipation, hypertension, fevers, and insomnia. Hold IV NS. Glucometer checks a.c. and HS with insulin regular sliding scale. Monitor renal and liver function. Monitor electrolytes and treat accordingly. DVT and GI prophylaxis. Obtain sonogram to r/o gallstones due to epigastric pain and severe shoulder pain with neg shoulder x-ray. EKG and trop in am. A.m. labs: CBC, CMP, lipase, Mag, phos, TSH, A1c, ESR, CRP, troponin. NEURO: Minimize central acting medications as possible. Fall Precautions. Well lighted room through the day and minimize interruptions through the night to prevent acute delirium. PULMONARY: Supplemental 02 as needed Titrate Fio2 to keep Spo2 > or = 90% DuoNebs and CPT as needed IS hourly while awake for pulmonary hygiene Out of bed to chair as tolerated VAP Bundle CARDIOVASCULAR: Follow hemodynamics. Titrate vasopressor to keep MAP >65 or systolic blood pressure >95mmHg GI & NUTRITION: Continue nutritional support Aspirations precautions Prokinetic agents and laxatives as needed KIDNEYS & ELECTROLYTES: Strict monitoring of intake and output Daily weights Avoid nephrotoxic agents Monitor electrolytes and replace as needed Goal urine output of 30mL/hr or 0.5mL/kg/hr ENDOCRINE: Maintain blood glucose between 100-180 at all times. Insulin sliding scale for blood glucose management INFECTIOUS DISEASE: Trend temperature. Johnson-culture if febrile. HEMATOLOGY & COAGULATION: Monitor H&H. Keep Hgb > 7 Transfuse 1 unit of PRBC for Hgb < 7 Transfuse 1 pack of platelets of platelets < 20, 000 Watch for any signs and symptoms of bleeding SKIN: Pressure ulcer prevention per facility protocol Rehab: PT/OT Code Status: Full Resuscitation Disposition: [Patient was admitted to ICU] Other: Total patient critical care time exceeds 40 minutes excluding all procedures. KATYA LOCK Nov 26, 2024 21:47
[2024-11-26] MEDS: acetaMINOPHEN 325 MG TAB PO PRN (22:50)
[2024-11-27] VITALS (31 sets, daily range): BP systolic 118–190; BP diastolic 45–104; PULSE 43–70; RESP 5–172; TEMP 98–98.6; O2SAT 94–96
[2024-11-27 05:20] LABS: BASOPHILS # (AUTO) 0.06 K/uL (0.00-0.20); BASOPHILS % (AUTO) 0.9 % (0.0-5.0); EOSINOPHILS % (AUTO) 2.9 % (0.0-8.0); HEMATOCRIT 32.4 % (36-48); IMMATURE GRANULOCYTE ABSOLUTE 0.02 K/uL (0-1); LYMPHOCYTES # (AUTO) 1.8 K/uL (1.0-4.8); LYMPHOCYTES % (AUTO) 25.8 % (21.0-51.0); MEAN CORPUSCULAR HEMOGLOBIN 29.1 pg (27.0-33.0); MEAN CORPUSCULAR HGB CONC 32.4 g/dL (32.0-36.0); MEAN CORPUSCULAR VOLUME 89.8 fL (79-99); MONOCYTES # (AUTO) 0.5 K/uL (0.1-1.0); MONOCYTES % (AUTO) 7.8 % (3.0-13.0); NEUTROPHILS # (AUTO) 4.3 K/uL (1.8-7.7); NEUTROPHILS % (AUTO) 62.3 % (40.0-77.0); PLATELET COUNT (AUTO) 182 K/uL (130-400); RED BLOOD CELL COUNT(AUTO) 3.61 MIL/uL (4.00-5.50); RED CELL DISTRIBUTION WIDTH 12.7 % (11.0-15.5); WHITE BLOOD COUNT (AUTO) 6.8 K/uL (4.8-10.8)
[2024-11-27 06:00] LABS: ALBUMIN 2.8 g/dL (3.5-5.0); BILIRUBIN,TOTAL 0.5 mg/dL (0.2-1.0); CREATININE 0.7 mg/dL (0.5-1.0); POTASSIUM 4.3 mmol/L (3.5-5.1); TOTAL PROTEIN, SERUM 6.1 g/dL (6.0-8.3)
[2024-11-27 06:03] LABS: HEMOGLOBIN A1C 9.9 % (4.0-6.0)
[2024-11-27 06:05] LABS: MAGNESIUM 1.7 mg/dL (1.80-2.40); THYROID STIMULATING HORMONE 12.1 uIU/mL (0.36-3.74)
[2024-11-27] MEDS: levoTHYROxine 100 MCG TABLET PO SCH (06:37)
[2024-11-27] MEDS: ENOXAPARIN SODIUM 40 MG/0.4 ML SYRINGE SQ SCH (08:33)
[2024-11-27] MEDS: atorVAStatin 20 MG TABLET PO SCH (08:34)
[2024-11-27] MEDS: ERGOCALCIFEROL (VITAMIN D2) 50,000 UNIT CAPSULE PO SCH (08:34)
[2024-11-27] MEDS: duloXETine HCL 30 MG CAP PO SCH (08:34)
--- NOTE | 2024-11-27 08:34 | HMCIMG ---
ULTRASOUND ABDOMEN LIMITED INDICATION: Right upper abdominal pain COMPARISON: None FINDINGS: The liver is enlarged and increased in echogenicity; no focal lesion demonstrated. Liver length is measured at 18.8 cm. The common bile duct diameter measures 5.0 mm. Gallbladder is surgically absent. Pancreas is obscured by overlying bowel gas. The right kidney measures 10.9 x 4.7 x 4.6 cm,and is normal in echogenicity, without evidence for hydronephrosis.No shadowing stones demonstrated. No free fluid demonstrated. IMPRESSION: Limitations as reported. Findings suggesting hepatomegaly and hepatic steatosis or other underlying hepatocellular disease process.
[2024-11-27] MEDS: OLMESARTAN HCTZ PO SCH (08:54)
--- NOTE | 2024-11-27 08:57 | PN ---
[facility] PROGRESS NOTE Date Patient Seen: Nov 27, 2024 Time of Visit: 08:46 Supervising Physician: Leeroy Machuca MD Primary Care Physician: JORDAN ARMANDO (PCP) Outpatient Specialists: Inpatient Consults: BIS, critical care team PROBLEM LIST: Hypertensive Emergency POA, resolved Uncontrolled diabetes mellitus, POA HGA1C 9.9 Influenza B infection Acute intractable right shoulder pain, POA Acute on chronic epigastric pain, POA Persistent left writs pain, POA History of left carpel tunnel Chronic pain syndrome Hepatomegaly Hepatic steatosis Chronic problem list: Arthritis, hypothyroidism, anxiety, GERD, diabetes jose itus type 2, hypercholesteremia, hypertension, carpal tunnel, chronic back/knee pain. INTERVAL HISTORY: 12/17/24- patient is awake alert and oriented x3. She has been off Cardene drip. Blood pressure this morning 146/73 with a heart rate of 49 respiratory rate of 22 saturating 95% room air, and afebrile. On laboratory H&H slightly decreased 10.5/32.4 platelet count is 182 K. kidneys are doing good creatinine 0.7 GFR of 97 glucose 197 mg/dL hemoglobin A1c 9.9 consistent with uncontrolled sugars and average glucose of 237 mg/dL magnesium is 1.70 CRP 19.80 TSH of 12.10. 2D echo showed LVEF greater than 65% no regional wall motion abnormalities noted. Normal global strain of-26%. Patient is positive for influenza B started Tamiflu 75 mg twice a day for five days. Avoid steroids with the influenza. REVIEW OF SYSTEMS: 12 point ROS reviewed with patient. Pertinent positives mentioned above. Otherwise negative. PHYSICAL EXAM: GENERAL: Alert, awake oriented x 3 HEENT: EOMI, Sclera non icteric, moist mucosa NECK: Supple, no JVD, trachea midline LUNGS: Clear breath sounds bilaterally. No wheezes HEART: Regular rate and rhythm. Normal S1 and S2, without murmurs ABD: Abdomen soft, nontender. Bowel sounds present EXT: No clubbing cyanosis or edema. NEURO: Alert and oriented X3, follows commands Vital Signs (last 8hr) Date Time Temp Pulse Resp B/P (MAP) Pulse Ox O2 Delivery O2 Flow Rate FiO2 11/27/24 05:01 54 19 118/48 94 11/27/24 04:01 43 19 124/45 94 11/27/24 04:00 95 Room Air* 0 21 11/27/24 03:01 98.4 53 19 135/67 93 11/27/24 02:37 55 19 149/62 94 11/27/24 02:35 52 19 189/69 94 11/27/24 02:30 54 20 190/104 97 11/27/24 02:15 50 20 162/69 94 11/27/24 02:00 48 19 164/63 94 11/27/24 01:45 48 19 151/60 92 11/27/24 01:30 48 21 155/64 94 11/27/24 01:15 47 13 148/54 92 11/27/24 01:00 48 24 149/63 93 LABS: Hematology Labs: Test 11/27/24 06:30 11/27/24 05:08 Range/Units Erythrocyte Sedimentation Rate 21 0-30 MM/HR White Blood Count 6.8 # 4.8-10.8 K/uL Red Blood Count 3.61 L 4.00-5.50 MIL/uL Hemoglobin 10.5 L 12.0-16.0 g/dL Hematocrit 32.4 L 36-48 % Mean Corpuscular Volume 89.8 79-99 fL Mean Corpuscular Hemoglobin 29.1 27.0-33.0 pg Mean Corpuscular Hemoglobin Concent 32.4 32.0-36.0 g/dL Red Cell Distribution Width 12.7 11.0-15.5 % Platelet Count 182 130-400 K/uL Mean Platelet Volume 12.3 H 7.5-10.5 fL Immature Granulocyte % (Auto) 0.3 0-1 % Neutrophils (%) (Auto) 62.3 40.0-77.0 % Lymphocytes (%) (Auto) 25.8 21.0-51.0 % Monocytes (%) (Auto) 7.8 3.0-13.0 % Eosinophils (%) (Auto) 2.9 0.0-8.0 % Basophils (%) (Auto) 0.9 0.0-5.0 % Neutrophils # (Auto) 4.3 1.8-7.7 K/uL Lymphocytes # (Auto) 1.8 1.0-4.8 K/uL Monocytes # (Auto) 0.5 0.1-1.0 K/uL Eosinophils # (Auto) 0.20 0.00-0.70 K/uL Basophils # (Auto) 0.06 0.00-0.20 K/uL Absolute Immature Granulocyte (auto 0.02 0-1 K/uL Nucleated Red Blood Cells 0.0 0.0-0.19 % Chemistry Labs: Test 11/27/24 06:20 11/27/24 05:08 Range/Units Whole Blood Glucose 199 H 70-110 MG/DL Sodium Level 140 136-145 mmol/L Potassium Level 4.3 3.5-5.1 mmol/L Chloride Level 105 101-111 mmol/L Carbon Dioxide Level 27 21-32 mmol/L Blood Urea Nitrogen 22 H 7-18 mg/dL Creatinine 0.7 0.5-1.0 mg/dL Glomerular Filtration Rate Calc 97 >90 mL/min Random Glucose 197 H 70-105 mg/dL Hemoglobin A1c 9.9 H 4.0-6.0 % Estimated Average Glucose (eAG) 237 H 70-126 mg/dL Total Calcium 8.4 L 8.5-10.1 mg/dL Magnesium Level 1.70 L 1.80-2.40 mg/dL Total Bilirubin 0.5 0.2-1.0 mg/dL Aspartate Amino Transf (AST/SGOT) 21 10-37 U/L Alanine Aminotransferase (ALT/SGPT) 27 12-78 U/L Alkaline Phosphatase 115 50-136 U/L Troponin I High Sensitivity 10 4-50 ng/L C-Reactive Protein, Quantitative 19.80 H 0.5-3.0 mg/L Total Protein 6.1 6.0-8.3 g/dL Albumin 2.8 L 3.5-5.0 g/dL Lipase 47 16-77 U/L Thyroid Stimulating Hormone (TSH) 12.10 H 0.36-3.74 uIU/mL DIAGNOSTICS / RADIOLOGY RESULTS: [ ] IMAGING REPORT Signed PATIENT: ARIANNE CORONA MR#: [id number] : 1960 SEX: F AGE: 64 LOCATION: [facility] ORDER 6 STATUS: ADM IN REPORT#: [id number] SERVICE REASON: suspect chf ORDERING PHYSICIAN: MARIANNA MANCINI PROCEDURE: ECHO CMP - ECHO 2-D COMPLETE APPROVED REPORT EXAM: Two-dimensional and M-mode echocardiogram with Doppler and color Doppler. INDICATION ICD: Elevated troponin, shortness of breath 2D Dimensions RVDd 3.6 cm LVEF(%) 66.9 (>50%) LVED Vol(simp.) 99.5 mL IVSd 1.0 (0.7-1.1cm) FS(%) 37 % LVES Vol(simp.) 32.6 mL LVDd 4.6 (3.8-5.6cm) LA (2D) 4.4 (1.6-4.0cm) LVEF(%, simp.) 67 % PWd 0.9 (0.7-1.1cm) Ao Root(2D) 3.1 (2.0-3.7cm) LA ESV INDEX (4CH) 38.20 mL/m2 IVSs 1.3 cm LVOT diam 1.9 (1.8-2.4cm) LA ESV INDEX (2CH) 27.40 mL/m2 LVDs 2.9 (2.5-4.0cm) LA ESV INDEX (BP) 37.30 mL/m2 PWs 1.8 cm Deformation Strain Apical 4 26.0 % Apical 2 26.0 % Apical 3 28.0 % Global Strain 27.0 % M-Mode Dimensions EPSS 0.7 cm LA (MM) 5.1 (1.6-4.0cm) Ao Root(MM) 2.5 (2.0-3.7cm) Aortic Valve AoV VTI 0.4 m Ao Mean GR 6.0 mmHg LVOT VTI 0.27 m BALTA (VMAX) 2.1 cm2 BALTA (VTI) 2.1 cm2 Mitral Valve MV E Vmax 91.7 cm/s DECEL Time 239 ms MV A Vmax 66.5 cm/s P 1/2 T 87 ms E/A ratio 1.4 MVA (PHT) 2.5 cm2 TDI E/E' Medial 14.1 E/E' Lateral 12.2 Medial E' Peak V 6.50 cm/s Lateral E' Peak V 7.50 cm/s Pulmonary Valve PV VTI 0.36 m PV Mean GR 4 mmHg PI End Cherelel. Sharan 71.9 cm/s Tricuspid Valve TR Vmax 3.0 m/s RAP (EST) 8 mmHg RVSP 43.0 mmHg TR Peak GR 35.0 mmHg Left Ventricle The left ventricle is normal size. No regional wall motion abnormalities noted. Normal global strain of -26%. There is normal left ventricular wall thickness. The LVEF is > 65%. Indeterminate diastolic dysfunction. Right Ventricle The right ventricle is normal size. The right ventricular systolic function is normal. Atria The left atrium is mildly dilated. The right atrium size is normal. Aortic Valve The aortic valve is normal in structure. No aortic regurgitation is present. There is no aortic valvular stenosis. Mitral Valve The mitral valve is normal in structure. There is no mitral valve regurgitation noted. There is no mitral valve stenosis. Tricuspid Valve The tricuspid valve is normal in structure. There is trace of tricuspid valve regurgitation noted. Pulmonic Valve The pulmonary valve is normal in structure. There is trace of pulmonic valvular regurgitation. Great Vessels The aortic root is normal in size. IVC is not well visualized. Pericardium There is no pericardial effusion. Other Information Quality : Adequate Conclusion The LVEF is > 65%. No regional wall motion abnormalities noted. Normal global strain of -26%. DICTATED BY: GLORIA AMIN MD DATE: 11/27/24 1104 ELECTRONICALLY SIGNED BY: GLORIA AMIN MD DATE: 11/27/24 1611 PLAN Off Cardene May downgrade. Oxygen therapy as needed to keep SpO2 equal to greater than 92%. Pain management. Levothyroxine at 1.6 microgram/kilogram daily. Glucometer checks a.c. and HS with insulin regular sliding scale. Monitor renal and liver function. Ultrasound of abdomen Monitor electrolytes and treat accordingly. DVT and GI prophylaxis. EKG and trop in am. 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 Fall Precautions. Well lighted room through the day and minimize interruptions through the night to prevent acute delirium. PULMONARY: Supplemental 02 as needed Titrate Fio2 to keep Spo2 > or = 90% DuoNebs and CPT as needed IS hourly while awake for pulmonary hygiene Out of bed to chair as tolerated VAP Bundle CARDIOVASCULAR: Follow hemodynamics. Titrate vasopressor to keep MAP >65 or systolic blood pressure >95mmHg GI & NUTRITION: Continue nutritional support Aspirations precautions Prokinetic agents and laxatives as needed KIDNEYS & ELECTROLYTES: Strict monitoring of intake and output Daily weights Avoid nephrotoxic agents Monitor electrolytes and replace as needed Goal urine output of 30mL/hr or 0.5mL/kg/hr ENDOCRINE: Maintain blood glucose between 100-180 at all times. Insulin sliding scale for blood glucose management INFECTIOUS DISEASE: Trend temperature. Johnson-culture if febrile. HEMATOLOGY & COAGULATION: Monitor H&H. Keep Hgb > 7 Transfuse 1 unit of PRBC for Hgb < 7 Transfuse 1 pack of platelets of platelets < 20, 000 Watch for any signs and symptoms of bleeding SKIN: Pressure ulcer prevention per facility protocol Rehab: PT/OT Code Status: Full Resuscitation Disposition: [Patient was admitted to ICU] Other: Total patient critical care time exceeds 40 minutes excluding all procedures. MARIANNA MANCINI [facility] Nov 27, 2024 08:57
[2024-11-27] MEDS: predniSONE 20 MG TABLET PO SCH (09:24)
[2024-11-27] MEDS: LIDOCAINE 5% TOPICAL PATCH TP SCH (09:24)
[2024-11-27] MEDS: INSULIN GLARgine 100 UNITS/ML 10 ML VIAL SQ SCH (09:24)
[2024-11-27] MEDS ORDERED: hydroMORPHone 0.5 MG SYG (0.5MG/0.5ML) IV PRN (09:30)
--- NOTE | 2024-11-27 09:44 | NUR ---
PT SEEN BY DR HUYNH AT BEDSIDE- PLAN OF CARE WAS DISCUSSED. DOWNGRADED TO PCCU STATUS. NO ACUTE DISTRESS NOTED. VERBALLY EDUCATED ON LANTUS,PREDNISONE , HTN, DM. VERBLAIZES UNDERSTANDING .
[2024-11-27 11:02] LABS: COVID19 (SARS ANTIGEN RAPID) PRESUMPTIVE NEGATIVE (NEGATIVE); INFLUENZA TYPE A Negative For Type A (NEGATIVE)
[2024-11-27 11:04] LABS: INFLUENZA TYPE B Positive For Type B (NEGATIVE)
--- NOTE | 2024-11-27 11:05 | PN ---
[facility] PROGRESS NOTE Date of Service: Nov 27, 2024 Time of Service: 10:56 SUBJECTIVE: Patient is seen and examined earlier this morning in the ICU, comfortably in bed, no acute events overnight, off Cardene drip since yesterday, BP 152/76, heart rate of 52, afebrile, saturating normal on room air, denies dizziness, no headache, no chest pain, no shortness a breath, no nausea, no vomiting. Mild drop in hemoglobin 10.5 today, hematocrit 32.4. Chest x-ray no acute cardiopulmonary process. Ultrasound abdomen findings suggestive of hepatomegaly and hepatic steatosis. REVIEW OF SYSTEMS CONSTITUTIONAL: Denies fevers, chills, or night sweats. No unintentional weight loss reported. NEUROLOGICAL: Denies headache, amaurosis fugax, motor weakness, sensory deficit, vertigo/spinning sensation, gait abnormalities, or tremors. ENT: No hearing loss, otalgia, otorrhea, rhinitis, rhinorrhea, hoarseness, or sore throat. CARDIOVASCULAR: Denies any exertional angina, dyspnea on exertion, orthopnea, paroxysmal nocturnal dyspnea, palpitations, life-threatening arrhythmias, claudication. PULMONARY: Denies any shortness of breath, cough, phlegm/sputum, hemoptysis, pleuritic chest pain. SLEEP: Denies morning headaches, daytime somnolence or napping. Denies difficulty falling asleep, staying asleep, waking from sleep. Denies knowledge of snoring. GASTROINTESTINAL: Denies any type of dysphagia to either liquids or solids. Denies nausea, vomiting, pyrosis, early satiety, abdominal pain, diarrhea, constipation, or changes in stool consistency or caliber. Denies coffee-ground emesis, hematemesis, hematochezia, or melanotic stools. GENITOURINARY: Denies frequency, urgency, nocturia, hematuria or incontinence (Storage/Irritative symptoms.) Low urinary stream, straining to void, urinary intermittency or hesitancy, splitting of the voiding stream, terminal dribbling. ENDOCRINOLOGIC: Denies polyuria, polydipsia, polyphagia or heat/cold intolerances. HEMATOLOGIC: Denies thrombophilia/previous clots, or coagulopathy/bleeding disorders. ONCOLOGIC: Denies personal history of malignancy. DERMATOLOGIC: Denies rashes or pruritus. PSYCHIATRIC: Denies any suicidal or homicidal ideation. Denies hallucinations. PHYSICAL EXAM GENERAL APPEARANCE: The patient is awake, alert, and oriented, in no acute cardiopulmonary distress. NEUROLOGICAL: Cranial nerves II-XII grossly intact. Motor is 5/5 in bilateral upper and lower extremities proximal to distal. No sensory deficits. HEENT: Face is symmetric. Pupils are equal and reactive. Extraocular movements are intact. NECK: Supple. No JVD. No thyromegaly. No submental, submandibular, pre- /postauricular, occipital or supraclavicular lymphadenopathy. CHEST: Normal chest expansion. No Telemetry. LUNGS: Absence of any rales, rhonchi or any wheezing. CARDIOVASCULAR: Regular. S1 and S2 normal. No appreciable rubs, murmurs or gallops. ABDOMEN: Soft, nontender, and nondistended. There is no rebound, voluntary guarding, or rigidity. : Deferred. No [place]. EXTREMITIES: Non-edematous and not cyanotic. No clubbing. Good capillary refill. SKIN: No skin breakdown. Vital Signs (last 8hr) Date Time Temp Pulse Resp B/P (MAP) Pulse Ox O2 Delivery O2 Flow Rate FiO2 11/27/24 09:00 98.1 52 18 152/76 96 Room Air 11/27/24 08:00 48 25 173/67 96 Room Air 11/27/24 08:00 96 Room Air* 0 21 11/27/24 07:35 46 22 156/69 96 Room Air 11/27/24 07:00 49 172 146/73 95 Room Air 11/27/24 05:01 54 19 118/48 94 11/27/24 04:01 43 19 124/45 94 11/27/24 04:00 95 Room Air* 0 21 11/27/24 03:01 98.4 53 19 135/67 93 LABS: Laboratory: Test 11/27/24 09:13 11/27/24 06:30 11/27/24 05:08 11/26/24 14:50 Range/Units Whole Blood Glucose 233 H 70-110 MG/DL Erythrocyte Sedimentation Rate 21 0-30 MM/HR White Blood Count 6.8 # 4.8-10.8 K/uL Red Blood Count 3.61 L 4.00-5.50 MIL/uL Hemoglobin 10.5 L 12.0-16.0 g/dL Hematocrit 32.4 L 36-48 % Mean Corpuscular Volume 89.8 79-99 fL Mean Corpuscular Hemoglobin 29.1 27.0-33.0 pg Mean Corpuscular Hemoglobin Concent 32.4 32.0-36.0 g/dL Red Cell Distribution Width 12.7 11.0-15.5 % Platelet Count 182 130-400 K/uL Mean Platelet Volume 12.3 H 7.5-10.5 fL Immature Granulocyte % (Auto) 0.3 0-1 % Neutrophils (%) (Auto) 62.3 40.0-77.0 % Lymphocytes (%) (Auto) 25.8 21.0-51.0 % Monocytes (%) (Auto) 7.8 3.0-13.0 % Eosinophils (%) (Auto) 2.9 0.0-8.0 % Basophils (%) (Auto) 0.9 0.0-5.0 % Neutrophils # (Auto) 4.3 1.8-7.7 K/uL Lymphocytes # (Auto) 1.8 1.0-4.8 K/uL Monocytes # (Auto) 0.5 0.1-1.0 K/uL Eosinophils # (Auto) 0.20 0.00-0.70 K/uL Basophils # (Auto) 0.06 0.00-0.20 K/uL Absolute Immature Granulocyte (auto 0.02 0-1 K/uL Nucleated Red Blood Cells 0.0 0.0-0.19 % Sodium Level 140 136-145 mmol/L Potassium Level 4.3 3.5-5.1 mmol/L Chloride Level 105 101-111 mmol/L Carbon Dioxide Level 27 21-32 mmol/L Blood Urea Nitrogen 22 H 7-18 mg/dL Creatinine 0.7 0.5-1.0 mg/dL Glomerular Filtration Rate Calc 97 >90 mL/min Random Glucose 197 H 70-105 mg/dL Hemoglobin A1c 9.9 H 4.0-6.0 % Estimated Average Glucose (eAG) 237 H 70-126 mg/dL Total Calcium 8.4 L 8.5-10.1 mg/dL Magnesium Level 1.70 L 1.80-2.40 mg/dL Total Bilirubin 0.5 0.2-1.0 mg/dL Aspartate Amino Transf (AST/SGOT) 21 10-37 U/L Alanine Aminotransferase (ALT/SGPT) 27 12-78 U/L Alkaline Phosphatase 115 50-136 U/L Troponin I High Sensitivity 10 4-50 ng/L C-Reactive Protein, Quantitative 19.80 H 0.5-3.0 mg/L Total Protein 6.1 6.0-8.3 g/dL Albumin 2.8 L 3.5-5.0 g/dL Lipase 47 16-77 U/L Thyroid Stimulating Hormone (TSH) 12.10 H 0.36-3.74 uIU/mL Urine Color STRAW YELLOW Urine Appearance CLEAR CLEAR Urine pH 5.5 5.0-8.0 Urine Specific [place] 1.024 1.001-1.031 Urine Protein NEGATIVE NEGATIVE mg/dL Urine Glucose (UA) >=1000 H NEGATIVE mg/dL Urine Ketones NEGATIVE NEGATIVE mg/dL Urine Occult Blood NEGATIVE NEGATIVE Urine Nitrate NEGATIVE NEGATIVE Urine Bilirubin NEGATIVE NEGATIVE mg/dL Urine Urobilinogen 0.2 0.2-1.0 mg/dL Urine Leukocyte Esterase NEGATIVE NEGATIVE Genesis/uL Urine RBC 0-1 0-1 /HPF Urine WBC 0-1 0-1 /HPF Urine Squamous Epithelial Cells RARE 0-2 /HPF Urine Bacteria None None Seen /HPF Current Medications Medications (Trade) Dose Ordered Sig/Brit Route PRN Reason Start Time Stop Time Status Last Admin Dose Admin Acetaminophen (TYLenol 325MG TAB) 650 mg Q4H PRN PO MILD PAIN (1-3) 11/26/24 16:30 12/26/24 16:29 Acetaminophen (TYLenol 325MG TAB) 650 mg Q6H PRN PO TEMPERATURE GREATER THAN 101.5 11/26/24 16:30 12/26/24 16:29 11/26/24 22:50 650 MG Acetaminophen/ Codeine Phosphate (TYLenol-coDEINE TAB) 1 tab Q6H PRN PO MODERATE PAIN (4-6) 11/26/24 16:30 12/26/24 16:29 Acetaminophen/ Codeine Phosphate (TYLenol-coDEINE TAB) 2 tab Q6H PRN PO SEVERE PAIN (7-10) 11/26/24 16:30 12/26/24 16:29 Atorvastatin Calcium (LIPItor 20MG) 20 mg DAILY PO 11/27/24 09:00 12/27/24 08:59 11/27/24 08:34 20 MG Citalopram Hydrobromide (CeleXA 20MG TAB) 40 mg HS PO 11/26/24 21:00 12/26/24 20:59 11/26/24 20:29 40 MG Dextrose (D50w) 50 ml AD PRN IV HYPOGLYCEMIA PROTOCOL 11/26/24 16:30 12/26/24 16:29 Duloxetine HCl (CymbALTA 30 mg CAP) 30 mg DAILY PO 11/27/24 09:00 12/27/24 08:59 11/27/24 08:34 30 MG Enoxaparin Sodium (Lovenox) 40 mg DAILY SQ 11/27/24 09:00 12/27/24 08:59 11/27/24 08:33 40 MG Ergocalciferol (Drisdol) 50,000 unit DAILY PO 11/27/24 09:00 12/27/24 08:59 11/27/24 08:34 50,000 UNIT Famotidine (Pepcid 20mg Vial) 20 mg DAILY IV 11/26/24 21:00 12/26/24 20:59 11/27/24 08:34 20 MG Glucagon (Glucagon 1mg Kit) 1 mg AD PRN IM HYPOGLYCEMIA PROTOCOL 11/26/24 16:30 12/26/24 16:29 Home Med (Home Medication) (Olmesartan-Hctz 20-12.5 m DAILY PO 11/27/24 09:00 12/27/24 08:59 11/27/24 08:54 1 EACH Hydromorphone HCl (DiLAUDid 0.5MG INJ) 0.5 mg Q4H PRN IV SEVERE PAIN (7-10) IF NPO 11/27/24 09:30 11/27/24 09:43 DC Hydromorphone HCl (DiLAUDid 1MG INJ) 0.5 mg Q4H PRN IV SEVERE PAIN (7-10) 11/26/24 16:30 11/27/24 09:05 DC Insulin Glargine (LANtus 100 UNITS/ML 10 ML VIAL) 15 units BID@0730,2100 SQ 11/27/24 09:00 12/27/24 08:59 11/27/24 09:24 15 UNITS Insulin Human Regular (humuLIN R 100 UNIT/ML 3ML) 15 unit ONCE STAT IV 11/26/24 14:49 11/26/24 14:53 DC 11/26/24 15:11 15 UNIT Insulin Human Regular (humuLIN R 100 UNIT/ML 3ML) INSULIN SLIDING SCAL... ACHS SQ 11/26/24 16:30 12/26/24 16:29 11/27/24 06:42 4 UNIT Levothyroxine Sodium (SYNTHroid 100MCG TAB) 100 mcg SYN PO 11/27/24 06:30 11/27/24 08:50 DC 11/27/24 06:37 100 MCG Levothyroxine Sodium (SYNTHroid 112MCG TAB) 112 mcg SYN PO 11/28/24 06:30 12/28/24 06:29 Levothyroxine Sodium (SYNTHroid 25MCG TAB) 25 mcg SYN PO 11/28/24 06:30 12/28/24 06:29 Lidocaine (Lidoderm Patch 5%) 1 patch DAILY TP 11/27/24 09:00 12/27/24 08:59 Morphine Sulfate (morPHINE 2MG SYG) 2 mg Q4H PRN IV MODERATE PAIN (4-6) 11/26/24 16:30 11/27/24 08:47 DC Nicardipine HCl 25 mg/Sodium Chloride 250 ml @ 0 mls/hr PROTOCOL IV 11/26/24 15:30 11/27/24 08:44 DC 11/26/24 15:44 25 MLS/HR Ondansetron HCl (zoFRAN 4MG INJ) 4 mg Q6H PRN IV NAUSEA/VOMITING 11/26/24 16:30 12/26/24 16:29 Prednisone (deltaSONE/ oraSONE 20MG TAB) 20 mg DAILY PO 11/27/24 09:00 12/27/24 08:59 11/27/24 09:24 20 MG Sodium Chloride 1,000 ml @ 75 mls/hr [id number] IV 11/26/24 16:30 11/27/24 08:44 DC 11/26/24 17:12 75 MLS/HR DIAGNOSTICS / RADIOLOGY: [ ] CHEST 1VW CLINICAL HISTORY: ARM PAIN COMPARISON: 08/08/2019 TECHNIQUE: Single view of the chest was obtained. FINDINGS: Lungs are clear. The cardiac size and mediastinum are unremarkable. The bony structures are within normal limits. IMPRESSION: No acute cardiopulmonary process identified. ASSESSMENT: Hypertensive Crisis POA Uncontrolled DM POA Chronic right shoulder pain POA Persistent left writs pain POA History of left carpel tunnel PLAN: Downgraded the patient to the PCU Currently off Cardene drip. Home BP medication reviewed and reconciled, discussed with the pharmacist. Replace electrolytes IV per protocol Echocardiogram to evaluate fraction Follow a.m. labs Add Lovenox and famotidine for DVT and GI prophylaxis. Disposition: Downgraded to the PCU, pending improvement clinical condition. Plan of action discussed, all questions answered. Agreed and understood the information provided. Total ICU time spent greater 30 minutes. JASON HUYNH MD Nov 27, 2024 11:05
--- NOTE | 2024-11-27 11:14 | NUR ---
POSITIVE FOR FLU B- DROPLET ISOLATION INITIATED. PT AND FAMILY INFORMED AND EDUCATED ON DROPLET PRECAUTIONS. PT SHOWERED AND REMOVED LIDOCAINE PATCH AND I WILL APPLY A NEW ONE NOEL. CURRENTLY HAVING A BEDSIDE ECHOCARDIOGRAM. COMFORTABLE AT PRESENT TIME. EKG ORDERED DONE AND REVIEWED BY Jonathon MANCINI [facility] . I ALSO INFORMED ADDIS [facility] ABOUT POSITIVE FLU B RESULT
[2024-11-27] MEDS ORDERED: hydrALAZine 20MG/ML VIAL IV PRN (11:30)
[2024-11-27] MEDS: OSELTAMIVIR PHOSPHATE 75 MG CAP PO SCH (11:46)
[2024-11-27] MEDS: MAGNESIUM 2GM PREMIX 50ML 50 ML IV SCH (13:13)
[2024-11-27] MEDS: hydrALAZine 20MG/ML VIAL IV PRN (15:06)
--- NOTE | 2024-11-27 15:34 | NUR ---
INITIAL/DCP HOME Met w pt and spouse this afternoon to discuss dcp. Pt admitted w HTN urgency. EC spouse William Cantrell [phone]. PCP Severiano Jacobson. Preferred pharmacy is [facility]. Prior to admission pt was living at home w her spouse and son. She uses a cane for ambulation and requires assist w ADLs dt pain in rt shoulder. Pt's spouse is able to provide transportation where needed. Other home DME includes chair and sw. discharge goal is to return home. She mentions that her dtr is willing to assist as needed. referral to [facility] provider assist. Addendum: 11/27/24 at 1536 by FARAZ MURILLO CM Amended: Links added.
--- NOTE | 2024-11-27 15:46 | NUR ---
BP 189/90 GAVE APRESOLINE PRN-SEE EMAR. PAIN AND SWELLING TO LEFT FOREARM IV WHEN FLUSHED WITH NS- IT WAS REMOVED. HER IV SITE TO RAC IS PATENT AND HAS BLOOD RETURN -FLUSHES WELL WITH NS. SHE ASKED THAT I START ANOTHER IV TO LEFT ARM BECAUSE RAC SITE IS CUMBERSOME WHEN SHE GOES TO "BATHROOM" , ALSO BECAUSE OF PAIN TO HER RT SHOULDER. I WILL OFFER PRN PAIN MED. I WAS UNABLE TO OBTAIN IV ACCESS TO LEFT WRIST X 2 ATTEMPTS. SHE DECIDED TO KEEP HER RT ANTECUBITAL IV SITE IN PLACE FOR NOW
[2024-11-27] MEDS: acetaMINOPHEN WITH coDEINE 1 TAB TAB PO PRN (15:54)
--- NOTE | 2024-11-27 16:11 | HMCSR ---
APPROVED REPORT EXAM: Two-dimensional and M-mode echocardiogram with Doppler and color Doppler. INDICATION ICD: Elevated troponin, shortness of breath 2D Dimensions RVDd3.6 cmLVEF(%)66.9 (>50%)LVED Vol(simp.)99.5 mL IVSd1.0 (0.7-1.1cm)FS(%)37 %LVES Vol(simp.)32.6 mL LVDd4.6 (3.8-5.6cm)LA (2D)4.4 (1.6-4.0cm)LVEF(%, simp.)67 % PWd0.9 (0.7-1.1cm)Ao Root(2D)3.1 (2.0-3.7cm)LA ESV INDEX (4CH)38.20 mL/m2 IVSs1.3 cmLVOT diam1.9 (1.8-2.4cm)LA ESV INDEX (2CH)27.40 mL/m2 LVDs2.9 (2.5-4.0cm)LA ESV INDEX (BP)37.30 mL/m2 PWs1.8 cm Deformation Strain Apical 426.0 % Apical 226.0 % Apical 328.0 % Global Ltjszr31.0 % M-Mode Dimensions EPSS0.7 cm LA (MM)5.1 (1.6-4.0cm) Ao Root(MM)2.5 (2.0-3.7cm) Aortic Valve AoV VTI0.4 mAo Mean GR6.0 mmHgLVOT VTI0.27 m BALTA (VMAX)2.1 cm2AVA (VTI) 2.1 cm2 Mitral Valve MV E Vmax91.7 cm/sDECEL Idzx839 ms MV A Vmax66.5 cm/sP 1/2 T87 ms E/A ratio1.4MVA (PHT)2.5 cm2 TDI E/E' Nfhicq24.1E/E' Dowtxmv59.2 Medial E' Peak V6.50 cm/sLateral E' Peak V7.50 cm/s Pulmonary Valve PV VTI0.36 mPV Mean GR4 mmHg PI End Cherelle. Sharan 71.9 cm/s Tricuspid Valve TR Vmax3.0 m/sRAP (EST) 8 kjNrPDVJ17.0 mmHg TR Peak GR35.0 mmHg Left Ventricle The left ventricle is normal size. No regional wall motion abnormalities noted. Normal global strain of -26%. There is normal left ventricular wall thickness. The LVEF is > 65%. Indeterminate diastolic dysfunction. Right Ventricle The right ventricle is normal size. The right ventricular systolic function is normal. Atria The left atrium is mildly dilated. The right atrium size is normal. Aortic Valve The aortic valve is normal in structure. No aortic regurgitation is present. There is no aortic valvu lar stenosis. Mitral Valve The mitral valve is normal in structure. There is no mitral valve regurgitation noted. There is no mi tral valve stenosis. Tricuspid Valve The tricuspid valve is normal in structure. There is trace of tricuspid valve regurgitation noted. Pulmonic Valve The pulmonary valve is normal in structure. There is trace of pulmonic valvular regurgitation. Great Vessels The aortic root is normal in size. IVC is not well visualized. Pericardium There is no pericardial effusion. Other Information Quality : Adequate Conclusion The LVEF is > 65%. No regional wall motion abnormalities noted. Normal global strain of -26%.
[2024-11-27] MEDS: LAbetaLOL 20MG SYG IV PRN (16:24)
--- NOTE | 2024-11-27 16:36 | NUR ---
HAND OFF REPORT GIVEN TO DINORA CUEVAS RN. PT TRANSFER TO [place] [id number]. PER WHEELCHAIR. Addendum: 11/27/24 at 1701 by FAINA ZHANG RN RN TRANSFERRED TO [address] [place]
--- NOTE | 2024-11-27 23:43 | EKG ---
[facility] Test Date: 2024-11-27 Test Time: 10:57:52 Pat Name: ARIANNE CORONA Department: [facility] Room: 204 1 Gender: F Credit Card Clerk: THOMAS : 1960 Requested By: KATYA LOCK Order Number: [id number] Reading MD: Judy Mcdonnell Measurements Intervals [place] Rate: 51 P: -73 DC: 169 QRS: 7 QRSD: 91 T: 4 QT: 448 QTc: 411 Interpretive Statements Sinus rhythm Anteroseptal infarct, age indeterminate Compared to ECG 11/26/2024 13:47:35 Ectopic atrial rhythm now present Myocardial infarct finding now present Sinus rhythm no longer present Prolonged QT interval no longer present Electronically Signed On 12-01-2024 08:14:00 FLOORING MACHINE OPERATOR by Judy Mcdonnell Please click the below link to view image of tracing.
[2024-11-28] VITALS (7 sets, daily range): BP systolic 144–182; BP diastolic 63–86; PULSE 50–65; RESP 18–20; TEMP 97.8–98.6; O2SAT 95–96
[2024-11-28 05:00] LABS: HEMATOCRIT 32.5 % (36-48); MEAN CORPUSCULAR HEMOGLOBIN 28.6 pg (27.0-33.0); MEAN CORPUSCULAR HGB CONC 32.6 g/dL (32.0-36.0); MEAN CORPUSCULAR VOLUME 87.8 fL (79-99); RED BLOOD CELL COUNT(AUTO) 3.7 MIL/uL (4.00-5.50); RED CELL DISTRIBUTION WIDTH 12.6 % (11.0-15.5); WHITE BLOOD COUNT (AUTO) 8.9 K/uL (4.8-10.8)
[2024-11-28 05:16] LABS: ALBUMIN 2.8 g/dL (3.5-5.0); BILIRUBIN,TOTAL 0.4 mg/dL (0.2-1.0); CREATININE 0.6 mg/dL (0.5-1.0); MAGNESIUM 1.7 mg/dL (1.80-2.40); POTASSIUM 3.9 mmol/L (3.5-5.1); TOTAL PROTEIN, SERUM 6.4 g/dL (6.0-8.3)
[2024-11-28] MEDS: levoTHYROxine 25 MCG TABLET PO SCH (06:36)
[2024-11-28] MEDS: levoTHYROxine 112 MCG TABLET PO SCH (06:36)
[2024-11-28] MEDS ORDERED: LoSARTan 50 MG TABLET PO SCH (09:00)
[2024-11-28] MEDS: nifeDIPine ER 30 MG TAB PO SCH (09:17)
[2024-11-28] MEDS: acetaMINOPHEN WITH coDEINE 1 TAB TAB PO PRN (09:25)
--- NOTE | 2024-11-28 11:53 | PN ---
[facility] PROGRESS NOTE Date of Service: Nov 28, 2024 Time of Service: 11:20 SUBJECTIVE: 11/27 - Patient is seen and examined earlier this morning in the ICU, comfortably in bed, no acute events overnight, off Cardene drip since yesterday, BP 152/76, heart rate of 52, afebrile, saturating normal on room air, denies dizziness, no headache, no chest pain, no shortness a breath, no nausea, no vomiting. Mild drop in hemoglobin 10.5 today, hematocrit 32.4. Chest x-ray no acute cardiopulmonary process. Ultrasound abdomen findings suggestive of hepatomegaly and hepatic steatosis. 11/28 - patient seen at bedside, no acute events overnight. She has been step- down from the ICU, restarted on her home blood pressure medication last night. Still having elevated blood pressure with systolic up to the 180s. We will start nifedipine 30 mg twice daily and reassess tomorrow. Ejection fraction normal, no major valvular abnormalities. TSH was elevated however free T4 within normal range. Pulmonology had increased her levothyroxine dose however this is inappropriate with a normal T4 range. We will resume her home dose on discharge. Labs otherwise unremarkable. Patient complaining of right shoulder pain, unable to raise against gravity. X-rays are negative for fracture, we will order MRI to assess for ligament damage REVIEW OF SYSTEMS 12 point review of systems negative unless noted in HPI PHYSICAL EXAM GENERAL APPEARANCE: The patient is awake, alert, and oriented, in no acute cardiopulmonary distress. NEUROLOGICAL: Cranial nerves II-XII grossly intact. Motor is 5/5 in bilateral upper and lower extremities proximal to distal. No sensory deficits. HEENT: Face is symmetric. Pupils are equal and reactive. Extraocular movements are intact. NECK: Supple. No JVD. No thyromegaly. No submental, submandibular, pre- /postauricular, occipital or supraclavicular lymphadenopathy. CHEST: Normal chest expansion. No Telemetry. LUNGS: Absence of any rales, rhonchi or any wheezing. CARDIOVASCULAR: Regular. S1 and S2 normal. No appreciable rubs, murmurs or gallops. ABDOMEN: Soft, nontender, and nondistended. There is no rebound, voluntary guarding, or rigidity. : Deferred. No [place]. EXTREMITIES: Non-edematous and not cyanotic. No clubbing. Good capillary refill. SKIN: No skin breakdown. Vital Signs (last 8hr) Date Time Temp Pulse Resp B/P (MAP) Pulse Ox O2 Delivery O2 Flow Rate FiO2 11/28/24 07:00 97.9 50 18 179/79 93 Room Air 11/28/24 04:13 98.1 52 18 144/63 97 Room Air LABS: Laboratory: Test 11/28/24 10:30 11/28/24 04:42 11/27/24 10:20 11/27/24 06:30 Range/Units Whole Blood Glucose 209 #H 70-110 MG/DL Bedside Glucose Comment Notified Nurse White Blood Count 8.9 # 4.8-10.8 K/uL Red Blood Count 3.70 L 4.00-5.50 MIL/uL Hemoglobin 10.6 L 12.0-16.0 g/dL Hematocrit 32.5 L 36-48 % Mean Corpuscular Volume 87.8 79-99 fL Mean Corpuscular Hemoglobin 28.6 27.0-33.0 pg Mean Corpuscular Hemoglobin Concent 32.6 32.0-36.0 g/dL Red Cell Distribution Width 12.6 11.0-15.5 % Platelet Count 206 130-400 K/uL Mean Platelet Volume 12.3 H 7.5-10.5 fL Nucleated Red Blood Cells 0.0 0.0-0.19 % Sodium Level 139 136-145 mmol/L Potassium Level 3.9 3.5-5.1 mmol/L Chloride Level 102 101-111 mmol/L Carbon Dioxide Level 28 21-32 mmol/L Blood Urea Nitrogen 18 7-18 mg/dL Creatinine 0.6 0.5-1.0 mg/dL Glomerular Filtration Rate Calc 100 >90 mL/min Random Glucose 148 H 70-105 mg/dL Total Calcium 8.9 8.5-10.1 mg/dL Magnesium Level 1.70 L 1.80-2.40 mg/dL Total Bilirubin 0.4 0.2-1.0 mg/dL Aspartate Amino Transf (AST/SGOT) 16 10-37 U/L Alanine Aminotransferase (ALT/SGPT) 31 12-78 U/L Alkaline Phosphatase 113 50-136 U/L B-Type Natriuretic Peptide 71 0-100 pg/mL Total Protein 6.4 6.0-8.3 g/dL Albumin 2.8 L 3.5-5.0 g/dL Free Thyroxine (T4) Direct 1.11 0.76-1.46 ng/dL Influenza Type A Antigen Negative For Type A NEGATIVE Influenza Type B Antigen Positive For Type B *A NEGATIVE SARS-CoV-2 Antigen (Rapid) PRESUMPTIVE NEGATIVE NEGATIVE Erythrocyte Sedimentation Rate 21 0-30 MM/HR Test 11/27/24 05:08 11/26/24 14:50 Range/Units Immature Granulocyte % (Auto) 0.3 0-1 % Neutrophils (%) (Auto) 62.3 40.0-77.0 % Lymphocytes (%) (Auto) 25.8 21.0-51.0 % Monocytes (%) (Auto) 7.8 3.0-13.0 % Eosinophils (%) (Auto) 2.9 0.0-8.0 % Basophils (%) (Auto) 0.9 0.0-5.0 % Neutrophils # (Auto) 4.3 1.8-7.7 K/uL Lymphocytes # (Auto) 1.8 1.0-4.8 K/uL Monocytes # (Auto) 0.5 0.1-1.0 K/uL Eosinophils # (Auto) 0.20 0.00-0.70 K/uL Basophils # (Auto) 0.06 0.00-0.20 K/uL Absolute Immature Granulocyte (auto 0.02 0-1 K/uL Hemoglobin A1c 9.9 H 4.0-6.0 % Estimated Average Glucose (eAG) 237 H 70-126 mg/dL Troponin I High Sensitivity 10 4-50 ng/L C-Reactive Protein, Quantitative 19.80 H 0.5-3.0 mg/L Lipase 47 16-77 U/L Thyroid Stimulating Hormone (TSH) 12.10 H 0.36-3.74 uIU/mL Urine Color STRAW YELLOW Urine Appearance CLEAR CLEAR Urine pH 5.5 5.0-8.0 Urine Specific [place]rum 1.024 1.001-1.031 Urine Protein NEGATIVE NEGATIVE mg/dL Urine Glucose (UA) >=1000 H NEGATIVE mg/dL Urine Ketones NEGATIVE NEGATIVE mg/dL Urine Occult Blood NEGATIVE NEGATIVE Urine Nitrate NEGATIVE NEGATIVE Urine Bilirubin NEGATIVE NEGATIVE mg/dL Urine Urobilinogen 0.2 0.2-1.0 mg/dL Urine Leukocyte Esterase NEGATIVE NEGATIVE Genesis/uL Urine RBC 0-1 0-1 /HPF Urine WBC 0-1 0-1 /HPF Urine Squamous Epithelial Cells RARE 0-2 /HPF Urine Bacteria None None Seen /HPF Current Medications Medications (Trade) Dose Ordered Sig/Brit Route PRN Reason Start Time Stop Time Status Last Admin Dose Admin Acetaminophen (TYLenol 325MG TAB) 650 mg Q4H PRN PO MILD PAIN (1-3) 11/26/24 16:30 12/26/24 16:29 Acetaminophen (TYLenol 325MG TAB) 650 mg Q6H PRN PO TEMPERATURE GREATER THAN 101.5 11/26/24 16:30 12/26/24 16:29 11/26/24 22:50 650 MG Acetaminophen/ Codeine Phosphate (TYLenol-coDEINE TAB) 1 tab Q6H PRN PO MODERATE PAIN (4-6) 11/26/24 16:30 12/26/24 16:29 11/27/24 15:54 1 TAB Acetaminophen/ Codeine Phosphate (TYLenol-coDEINE TAB) 2 tab Q6H PRN PO SEVERE PAIN (7-10) 11/26/24 16:30 12/26/24 16:29 11/28/24 09:25 2 TAB Atorvastatin Calcium (LIPItor 20MG) 20 mg DAILY PO 11/27/24 09:00 11/28/24 06:49 DC 11/27/24 08:34 20 MG Atorvastatin Calcium (LIPItor 20MG) 20 mg HS PO 11/28/24 21:00 12/27/24 08:59 Citalopram Hydrobromide (CeleXA 20MG TAB) 40 mg HS PO 11/26/24 21:00 12/26/24 20:59 11/27/24 20:35 40 MG Dextrose (D50w) 50 ml AD PRN IV HYPOGLYCEMIA PROTOCOL 11/26/24 16:30 12/26/24 16:29 Duloxetine HCl (CymbALTA 30 mg CAP) 30 mg DAILY PO 11/27/24 09:00 12/27/24 08:59 11/28/24 09:17 30 MG Enoxaparin Sodium (Lovenox) 40 mg DAILY SQ 11/27/24 09:00 12/27/24 08:59 11/28/24 09:17 40 MG Ergocalciferol (Drisdol) 50,000 unit DAILY PO 11/27/24 09:00 12/27/24 08:59 11/28/24 09:17 50,000 UNIT Famotidine (Pepcid 20mg Vial) 20 mg DAILY IV 11/26/24 21:00 12/26/24 20:59 11/28/24 09:17 20 MG Glucagon (Glucagon 1mg Kit) 1 mg AD PRN IM HYPOGLYCEMIA PROTOCOL 11/26/24 16:30 12/26/24 16:29 Home Med (Home Medication) (Olmesartan-Hctz 20-12.5 m DAILY PO 11/27/24 09:00 12/27/24 08:59 11/28/24 09:19 1 EACH Hydralazine HCl (APRESOLine 20MG INJ) 5 mg Q6H PRN IV ADMINISTER FOR SBP > 160 11/27/24 11:30 11/27/24 15:04 DC Hydralazine HCl (APRESOLine 20MG INJ) 10 mg Q2HPRN PRN IV ADMINISTER FOR SBP > 180 11/27/24 15:30 12/27/24 15:29 11/27/24 15:06 10 MG Hydromorphone HCl (DiLAUDid 0.5MG INJ) 0.5 mg Q4H PRN IV SEVERE PAIN (7-10) IF NPO 11/27/24 09:30 11/27/24 09:43 DC Hydromorphone HCl (DiLAUDid 1MG INJ) 0.5 mg Q4H PRN IV SEVERE PAIN (7-10) 11/26/24 16:30 11/27/24 09:05 DC Insulin Glargine (LANtus 100 UNITS/ML 10 ML VIAL) 15 units BID@0730,2100 SQ 11/27/24 09:00 12/27/24 08:59 11/28/24 06:39 15 UNITS Insulin Human Regular (humuLIN R 100 UNIT/ML 3ML) 15 unit ONCE STAT IV 11/26/24 14:49 11/26/24 14:53 DC 11/26/24 15:11 15 UNIT Insulin Human Regular (humuLIN R 100 UNIT/ML 3ML) INSULIN SLIDING SCAL... ACHS SQ 11/26/24 16:30 12/26/24 16:29 11/27/24 20:37 16 UNIT Labetalol HCl (TRANdate 20MG SYG) 10 mg Q2HPRN PRN IV IF SBP GREATER THAN 180 11/27/24 15:30 11/28/24 07:12 DC 11/27/24 20:36 10 MG Levothyroxine Sodium (SYNTHroid 100MCG TAB) 100 mcg SYN PO 11/27/24 06:30 11/27/24 08:50 DC 11/27/24 06:37 100 MCG Levothyroxine Sodium (SYNTHroid 112MCG TAB) 112 mcg SYN PO 11/28/24 06:30 12/28/24 06:29 11/28/24 06:36 112 MCG Levothyroxine Sodium (SYNTHroid 25MCG TAB) 25 mcg SYN PO 11/28/24 06:30 12/28/24 06:29 11/28/24 06:36 25 MCG Lidocaine (Lidoderm Patch 5%) 1 patch DAILY TP 11/27/24 09:00 12/27/24 08:59 11/28/24 09:16 1 PATCH Lorazepam (AtiVAN) 1 mg ONCE PRN IVP MRI 11/28/24 07:30 12/05/24 07:29 Losartan Potassium (CozAAR 50 mg TAB) 50 mg BID PO 11/28/24 09:00 11/28/24 07:15 DC Magnesium Sulfate 50 ml @ 0 mls/hr PROTOCOL IV 11/27/24 11:30 12/27/24 11:29 11/28/24 06:35 20 MLS/HR Morphine Sulfate (morPHINE 2MG SYG) 2 mg Q4H PRN IV MODERATE PAIN (4-6) 11/26/24 16:30 11/27/24 08:47 DC Nicardipine HCl 25 mg/Sodium Chloride 250 ml @ 0 mls/hr PROTOCOL IV 11/26/24 15:30 11/27/24 08:44 DC 11/26/24 15:44 25 MLS/HR Nifedipine (adALAT 30MG) 30 mg BID PO 11/28/24 09:00 12/28/24 08:59 11/28/24 09:17 30 MG Ondansetron HCl (zoFRAN 4MG INJ) 4 mg Q6H PRN IV NAUSEA/VOMITING 11/26/24 16:30 12/26/24 16:29 Oseltamivir Phosphate (Tamiflu) 75 mg BID PO 11/27/24 11:30 12/02/24 11:29 11/28/24 09:17 75 MG Prednisone (deltaSONE/ oraSONE 20MG TAB) 20 mg DAILY PO 11/27/24 09:00 11/27/24 19:13 DC 11/27/24 09:24 20 MG Sodium Chloride 1,000 ml @ 75 mls/hr [id number] IV 11/26/24 16:30 11/27/24 08:44 DC 11/26/24 17:12 75 MLS/HR DIAGNOSTICS / RADIOLOGY: [ ] ASSESSMENT: Hypertensive Crisis POA Uncontrolled DM POA Chronic right shoulder pain POA Persistent left writs pain POA History of left carpel tunnel PLAN: Downgraded the patient to the PCU Start nifedipine 30mg BID MRI of shoulder pending, will follow up Home BP medication reviewed and reconciled, discussed with the pharmacist. Replace electrolytes IV per protocol Disposition: Pending BP control, MRI of shoulder JAN GALLEGOS MD Nov 28, 2024 11:53
[2024-11-28] MEDS ORDERED: amLODIPine 5 MG TAB PO SCH (12:00)
[2024-11-28] MEDS: LORazepam 2 MG/ML 1 ML VIAL IVP PRN (12:38)
--- NOTE | 2024-11-28 14:12 | HMCIMG ---
MR SHOULDER RIGHT WO HISTORY: Pain COMPARISON: None TECHNIQUE: MRI of the right shoulder was performed utilizing multiple pulse sequences in axial, coronal and sagittal planes. Patient was not given contrast through intravenous route. FINDINGS: No abnormal signal intensity is seen of the visualized bony structure. Hypertrophic degenerative changes are seen of the acromioclavicular joint. There is downward sloping of acromion in a medial to lateral direction encroaching upon the rotator cuff tendon and muscles. There is rotator cuff tendinosis with partial undersurface tear. Soft tissue edema is seen surrounding the rotator cuff tendon. There are motion artifacts degrading the image quality. No definite fluid is seen in the subacromial-subdeltoid bursa complex. Degenerative changes are seen. The glenoid labrum is intact. Bicipital tendon is seen within its groove. No appreciable amount of joint effusion is seen. IMPRESSION: 1. There is rotator cuff tendinosis with partial undersurface tear. Soft tissue edema is seen surrounding the rotator cuff tendon. There are motion artifacts degrading the image quality. No definite fluid is seen in the subacromial-subdeltoid bursa complex. Degenerative changes are seen.
--- NOTE | 2024-11-28 14:32 | PN ---
[facility] PROGRESS NOTE Date Patient Seen: Nov 28, 2024 Time of Visit: 14:17 Supervising Physician: Leeroy Machuca MD Primary Care Physician: JORDAN ARMANDO (PCP) Outpatient Specialists: Inpatient Consults: BIS, critical care team PROBLEM LIST: Hypertensive Emergency POA, resolved Uncontrolled diabetes mellitus, POA HGA1C 9.9 Influenza B infection Acute intractable right shoulder pain, POA Acute on chronic epigastric pain, POA Persistent left writs pain, POA History of left carpel tunnel Chronic pain syndrome Hepatomegaly Hepatic steatosis Chronic problem list: Arthritis, hypothyroidism, anxiety, GERD, diabetes mark litus type 2, hypercholesteremia, hypertension, carpal tunnel, chronic back/knee pain. INTERVAL HISTORY: 11/27/24- patient is awake alert and oriented x3. She has been off Cardene drip. Blood pressure this morning 146/73 with a heart rate of 49 respiratory rate of 22 saturating 95% room air, and afebrile. On laboratory H&H slightly decreased 10.5/32.4 platelet count is 182 K. kidneys are doing good creatinine 0.7 GFR of 97 glucose 197 mg/dL hemoglobin A1c 9.9 consistent with uncontrolled sugars and average glucose of 237 mg/dL magnesium is 1.70 CRP 19.80 TSH of 12.10. 2D echo showed LVEF greater than 65% no regional wall motion abnormalities noted. Normal global strain of-26%. Patient is positive for influenza B started Tamiflu 75 mg twice a day for five days. Avoid steroids with the influenza. 11/28/24-patient is awake alert and oriented x3. Status post MRI of the right shoulder. Slightly drowsy after one time dose Ativan administration for anxiety at the MRI. There has been some improvement in blood pressure but still 163/67 this morning with a heart rate of 59 respiratory rate of 20 saturating 95% on room air. Amlodipine 10 mg q.day added for blood pressure regimen. H&H 10.6/32.5 platelet count is 206 K. chemistry unremarkable. Magnesium 1.7. Free T4 1.11. From pulmonary standpoint patient is stable at this time. We will sign off. Patient will need to follow-up with pulmonary service of choice 2 weeks postdischarge. Please reach to us should the need arise. On behalf of [facility] we are thankful for your team to let us participate in the care of this patient. We will be available if assistance in pulmonary critical care needed. REVIEW OF SYSTEMS: 12 point ROS reviewed with patient. Pertinent positives mentioned above. Otherwise negative. PHYSICAL EXAM: GENERAL: Alert, awake oriented x 3 HEENT: EOMI, Sclera non icteric, moist mucosa NECK: Supple, no JVD, trachea midline LUNGS: Clear breath sounds bilaterally. No wheezes HEART: Regular rate and rhythm. Normal S1 and S2, without murmurs ABD: Abdomen soft, nontender. Bowel sounds present EXT: No clubbing cyanosis or edema. NEURO: Alert and oriented X3, follows commands Vital Signs (last 8hr) Date Time Temp Pulse Resp B/P (MAP) Pulse Ox O2 Delivery O2 Flow Rate FiO2 11/28/24 11:00 98.4 59 20 163/67 95 Room Air 11/28/24 08:00 95 Room Air* 0 21 11/28/24 07:00 97.9 50 18 179/79 93 Room Air LABS: Hematology Labs: Test 11/28/24 04:42 11/27/24 06:30 11/27/24 05:08 Range/Units White Blood Count 8.9 # 4.8-10.8 K/uL Red Blood Count 3.70 L 4.00-5.50 MIL/uL Hemoglobin 10.6 L 12.0-16.0 g/dL Hematocrit 32.5 L 36-48 % Mean Corpuscular Volume 87.8 79-99 fL Mean Corpuscular Hemoglobin 28.6 27.0-33.0 pg Mean Corpuscular Hemoglobin Concent 32.6 32.0-36.0 g/dL Red Cell Distribution Width 12.6 11.0-15.5 % Platelet Count 206 130-400 K/uL Mean Platelet Volume 12.3 H 7.5-10.5 fL Nucleated Red Blood Cells 0.0 0.0-0.19 % Erythrocyte Sedimentation Rate 21 0-30 MM/HR Immature Granulocyte % (Auto) 0.3 0-1 % Neutrophils (%) (Auto) 62.3 40.0-77.0 % Lymphocytes (%) (Auto) 25.8 21.0-51.0 % Monocytes (%) (Auto) 7.8 3.0-13.0 % Eosinophils (%) (Auto) 2.9 0.0-8.0 % Basophils (%) (Auto) 0.9 0.0-5.0 % Neutrophils # (Auto) 4.3 1.8-7.7 K/uL Lymphocytes # (Auto) 1.8 1.0-4.8 K/uL Monocytes # (Auto) 0.5 0.1-1.0 K/uL Eosinophils # (Auto) 0.20 0.00-0.70 K/uL Basophils # (Auto) 0.06 0.00-0.20 K/uL Absolute Immature Granulocyte (auto 0.02 0-1 K/uL Chemistry Labs: Test 11/28/24 10:30 11/28/24 04:42 11/27/24 05:08 Range/Units Whole Blood Glucose 209 #H 70-110 MG/DL Bedside Glucose Comment Notified Nurse Sodium Level 139 136-145 mmol/L Potassium Level 3.9 3.5-5.1 mmol/L Chloride Level 102 101-111 mmol/L Carbon Dioxide Level 28 21-32 mmol/L Blood Urea Nitrogen 18 7-18 mg/dL Creatinine 0.6 0.5-1.0 mg/dL Glomerular Filtration Rate Calc 100 >90 mL/min Random Glucose 148 H 70-105 mg/dL Total Calcium 8.9 8.5-10.1 mg/dL Magnesium Level 1.70 L 1.80-2.40 mg/dL Total Bilirubin 0.4 0.2-1.0 mg/dL Aspartate Amino Transf (AST/SGOT) 16 10-37 U/L Alanine Aminotransferase (ALT/SGPT) 31 12-78 U/L Alkaline Phosphatase 113 50-136 U/L B-Type Natriuretic Peptide 71 0-100 pg/mL Total Protein 6.4 6.0-8.3 g/dL Albumin 2.8 L 3.5-5.0 g/dL Free Thyroxine (T4) Direct 1.11 0.76-1.46 ng/dL Hemoglobin A1c 9.9 H 4.0-6.0 % Estimated Average Glucose (eAG) 237 H 70-126 mg/dL Troponin I High Sensitivity 10 4-50 ng/L C-Reactive Protein, Quantitative 19.80 H 0.5-3.0 mg/L Lipase 47 16-77 U/L Thyroid Stimulating Hormone (TSH) 12.10 H 0.36-3.74 uIU/mL DIAGNOSTICS / RADIOLOGY RESULTS: [ ] PLAN -Arrange outpatient pulmonology referral for sleep study, PFT and follow-up management upon discharge - NEURO: Minimize central acting medications as possible. Maintain fall precautions, adequate lighting during the day PULMONARY: Supplemental 02 as needed. Maintain aspiration precautions at all times CARDIOVASCULAR: Follow hemodynamics. Vital signs per facility protocol GI & NUTRITION: Continue with nutritional support. Continue stool softeners and laxatives as needed. KIDNEYS & ELECTROLYTES: Strict monitoring of intake, output and overall fluid balance. Avoid nephrotoxic medications to the extent possible. Medications to be dosed according to renal function. Monitor electrolytes and replace as needed ENDOCRINE: Maintain blood glucose between 100-180 at all times. Hypoglycemia protocol in place INFECTIOUS DISEASE: Trend temperature, WBC and procalcitonin level Follow cultures, deescalate antibiotics as soon as possible. Panculture if new onset fever ONCOLOGY/HEMATOLOGY/COAGULATION: Monitor for s/s of bleeding Monitor hemoglobin, coagulation studies as needed SKIN: Pressure ulcer prevention per facility protocol Specialty mattress ORTHO/REHAB: Continue PT/OT Prophylaxis: Continue GI and DVT prophylaxis Code Status: Full Resuscitation Disposition: TBD Other: Total patient care time exceeds 35 minutes excluding all procedures. MARIANNA MANCINI [facility] Nov 28, 2024 14:32
[2024-11-28] MEDS: atorVAStatin 20 MG TABLET PO SCH (22:16)
[2024-11-29 00:27] VITALS: BP 159/72; PULSE 62; RESP 18; TEMP 98.5
[2024-11-29 04:29] VITALS: BP 157/75; PULSE 58; RESP 18; TEMP 98.7
[2024-11-29] MEDS ORDERED: OSEL75 PO (07:12)
[2024-11-29] MEDS ORDERED: NIFE-40 PO (07:12)
[2024-11-29 08:00] VITALS: O2SAT 96
[2024-11-29 08:53] VITALS: BP 134/64; PULSE 60; RESP 16; TEMP 98.5
[2024-11-29] MEDS: nifeDIPine ER 30 MG TAB PO SCH (10:10)
--- NOTE | 2024-11-29 11:51 | NUR ---
DISCHARGE DISCHARGE INSTRUCTIONS WERE GIVEN TO THIS PATIENT AND DAUGHTER AT BEDSIDE. TELE KRZYSZTOF WAS REMOVED AND RETURNED. PIV TO LEFT ANTECUBITAL WAS REMOVED WITH CATHETER INTACT. DRY DRESSING APPLIED ONCE BLEEDING STOPPED. PATIENT DENIES ANY PAIN OR SHORTNESS OF BREATH. ALL BELONGINGS WERE ACCOUNTED FOR. PATIENT WAS EDUCATED ON NEW MEDICATIONS AND VOICED UNDERSTANDING. DATE AND TIME OF APPT. WAS PROVIDED. PATIENT WAS TAKEN DOWN TO PRIVATE VEHICLE VIA WHEEL CHAIR.
--- NOTE | 2024-11-29 14:36 | DS ---
Discharge Summary Hospital Course Summary: 64-year-old female presented with elevated blood pressure and severe pain in her right shoulder. Her blood pressure was elevated above 200 systolic, she was admitted to the ICU and started on a Cardene drip. Her blood pressure medication was adjusted and her blood pressure improved. Shoulder x-ray was d one showing no evidence of acute fracture however there was some soft tissue swelling. Echocardiogram was done showing normal ejection fraction no major valvular abnormalities. An MRI of her shoulder was done showing tendinosis and a partial tear of her rotator cuff. By hospital day three she was evaluated as stable and ready for discharge. She will be discharged home, her PCP should refer her to outpatient physical therapy and rehab. She should also get a referral to an orthopedic surgeon to determine whether she needs surgical intervention or if her injury can be managed medically. . Procedure(s): MR SHOULDER RIGHT WO HISTORY: Pain COMPARISON: None TECHNIQUE: MRI of the right shoulder was performed utilizing multiple pulse sequences in axial, coronal and sagittal planes. Patient was not given contrast through intravenous route. FINDINGS: No abnormal signal intensity is seen of the visualized bony structure. Hypertrophic degenerative changes are seen of the acromioclavicular joint. There is downward sloping of acromion in a medial to lateral direction encroaching upon the rotator cuff tendon and muscles. There is rotator cuff tendinosis with partial undersurface tear. Soft tissue edema is seen surrounding the rotator cuff tendon. There are motion artifacts degrading the image quality. No definite fluid is seen in the subacromial-subdeltoid bursa complex. Degenerative changes are seen. The glenoid labrum is intact. Bicipital tendon is seen within its groove. No appreciable amount of joint effusion is seen. IMPRESSION: 1. There is rotator cuff tendinosis with partial undersurface tear. Soft tissue edema is seen surrounding the rotator cuff tendon. There are motion artifacts degrading the image quality. No definite fluid is seen in the subacromial-subdeltoid bursa complex. Degenerative changes are seen. Echocardiogram: Conclusion The LVEF is > 65%. No regional wall motion abnormalities noted. Normal global strain of -26%. ULTRASOUND ABDOMEN LIMITED INDICATION: Right upper abdominal pain COMPARISON: None FINDINGS: The liver is enlarged and increased in echogenicity; no focal lesion demonstrated. Liver length is measured at 18.8 cm. The common bile duct diameter measures 5.0 mm. Gallbladder is surgically absent. Pancreas is obscured by overlying bowel gas. The right kidney measures 10.9 x 4.7 x 4.6 cm,and is normal in echogenicity, without evidence for hydronephrosis.No shadowing stones demonstrated. No free fluid demonstrated. IMPRESSION: Limitations as reported. Findings suggesting hepatomegaly and hepatic steatosis or other underlying hepatocellular disease process. SHOULDER COMP 2+VWS RT CLINICAL HISTORY: Right lateral shoulder pain, non trauma two weeks COMPARISON: None TECHNIQUE: 2 images were obtained. FINDINGS: No obvious fracture or dislocation. No joint effusion. The soft tissues appear unremarkable. No radiopaque foreign bodies. IMPRESSION: No acute findings. CHEST 1VW CLINICAL HISTORY: ARM PAIN COMPARISON: 08/08/2019 TECHNIQUE: Single view of the chest was obtained. FINDINGS: Lungs are clear. The cardiac size and mediastinum are unremarkable. The bony structures are within normal limits. IMPRESSION: No acute cardiopulmonary process identified. Assessment/Plan: Hypertensive Crisis resolved POA Uncontrolled DM last A1C 9.9 POA Chronic right shoulder pain, partial rotator cuff tear with teninosis on MRI POA Persistent left wrist pain POA Recent fall from standing History of left carpel tunnel Discharge Instructions: Follow up with PCP in 3-7 days. Patient has right rotator cuff tendinosis with partial tear, please refer for physical therapy. Please refer to orthopedic surgeon for further evaluation. Patient blood pressure has been uncontrolled, likely associated with her pain. New medication has been started, patient instructed to keep BP journal and take to next appointment. Adjust medications as needed Home Medications: Active Scripts Oseltamivir Phosphate (Tamiflu) 75 Mg Cap, 75 MG PO BID, #8 CAP 0 Refills Prov:JAN GALLEGOS MD 11/29/24 Nifedipine (Nifedipine ER) 30 Mg Tab.er.24, 60 MG PO BID, #120 TAB 0 Refills Prov:JAN GALLEGOS MD 11/29/24 Reported Medications Pioglitazone HCl (Pioglitazone HCl) 30 Mg Tablet, 1 TAB PO DAILY for 30 Days, #30 TAB 0 Refills 11/26/24 Metformin HCl (Metformin HCl) 500 Mg Tablet, 1 TAB PO BID for 30 Days, #60 TAB 0 Refills 25 Ergocalciferol (Vitamin D2) (Vitamin D2) 1,250 Mcg (57765 Unit) Capsule, 1 CAP PO MON,BILLY for 28 Days, #4 CAP 0 Refills 1/4/25 Duloxetine HCl (Duloxetine HCl) 30 Mg Capsule.dr, 1 CAP PO DAILY for 30 Days, #30 CAP 0 Refills 11/26/24 Atorvastatin Calcium (Atorvastatin Calcium) 20 Mg Tablet, 1 TAB PO DAILY for 30 Days, #30 TAB 0 Refills 11/26/24 Levothyroxine Sodium (Levothroid/Synthroid) 100 Mcg Tab, 100 MCG PO DAILY, TAB 07/29/19 Escitalopram Oxalate (Escitalopram Oxalate) 20 Mg Tablet, 20 MG PO HS, TAB 07/29/19 Olmesartan/Hydrochlorothiazide (Olmesartan-Hctz 20-12.5 mg Tab) 1 Each Tablet, 1 EACH PO DAILY, TAB 07/29/19 Omeprazole (Omeprazole) 40 Mg Capsule.dr, 40 MG PO DAILY, CAP 07/29/19 Discontinued Reported Medications Semaglutide (Ozempic) 1 Mg/0.75 Ml (4 Mg/3 Ml) Pen.injctr, 1 MG SQ QWEEK for 30 Days, #3 ML 0 Refills 11/26/24 Docusate Sodium (Dulcolax Stool Softener) 100 Mg Capsule, 100 MG PO HS, CAP 07/29/19 Simvastatin (Simvastatin) 20 Mg Tablet, 20 MG PO HS, TAB 07/29/19 Metformin HCl (Metformin HCl ER) 500 Mg Tab.er.24, 500 MG PO HS 07/29/19 Fenofibrate (Fenofibrate) 160 Mg Tablet, 160 MG PO DAILY, TAB 07/29/19 Oxybutynin Chloride (Oxybutynin Chloride ER) 5 Mg Tab.er.24, 5 MG PO DAILY 07/29/19 Discontinued Scripts Hydrocodone/Acetaminophen ([place] 5-325 Tablet) 1 Each Tablet, 1-2 EACH PO Q6HPRN PRN for pain, #60 TAB Prov:PHONG MINER MD 08/02/19 Apixaban (Eliquis) 2.5 Mg Tablet, 2.5 MG PO BID, #40 TAB Prov:PHONG MINER MD 08/02/19 New Medications: Nifedipine (Nifedipine ER) 30 Mg Tab.er.24 60 MG PO BID, #120 TAB 0 Refills Oseltamivir Phosphate (Tamiflu) 75 Mg Cap 75 MG PO BID, #8 CAP 0 Refills Continued Medications: Atorvastatin Calcium (Atorvastatin Calcium) 20 Mg Tablet 1 TAB PO DAILY for 30 Days, #30 TAB 0 Refills Duloxetine HCl (Duloxetine HCl) 30 Mg Capsule.dr 1 CAP PO DAILY for 30 Days, #30 CAP 0 Refills Ergocalciferol (Vitamin D2) (Vitamin D2) 1,250 Mcg (12536 Unit) Capsule 1 CAP PO MON,BILLY for 28 Days, #4 CAP 0 Refills Escitalopram Oxalate (Escitalopram Oxalate) 20 Mg Tablet 20 MG PO HS, TAB Levothyroxine Sodium (Levothroid/Synthroid) 100 Mcg Tab 100 MCG PO DAILY, TAB Metformin HCl (Metformin HCl) 500 Mg Tablet 1 TAB PO BID for 30 Days, #60 TAB 0 Refills Olmesartan/Hydrochlorothiazide (Olmesartan-Hctz 20-12.5 mg Tab) 1 Each Tablet 1 EACH PO DAILY, TAB Omeprazole (Omeprazole) 40 Mg Capsule.dr 40 MG PO DAILY, CAP Pioglitazone HCl (Pioglitazone HCl) 30 Mg Tablet 1 TAB PO DAILY for 30 Days, #30 TAB 0 Refills Time spent arranging discharge: 31-60 minutes JAN GALLEGOS MD Nov 29, 2024 14:36
== END 2024-11-29 11:58 | disposition home or self-care (01) | DRG 305 ==
LOC: EDH 13:26 → EDHIP 16:23 → 2CH 18:04 → 2AH 11-27 17:07
PROVIDERS: ADMIT Internal Medicine; ATTEND Internal Medicine
DX: I16.1 Hypertensive emergency (principal); Z68.41 Body mass index [BMI] 40.0-44.9, adult; I10 Essential (primary) hypertension; E66.9 Obesity, unspecified; M25.511 Pain in right shoulder; E78.00 Pure hypercholesterolemia, unspecified; Z20.822 Contact with and (suspected) exposure to COVID-19; Z96.653 Presence of artificial knee joint, bilateral; J10.1 Influenza due to other identified influenza virus with other respiratory manifestations; G89.4 Chronic pain syndrome; R16.0 Hepatomegaly, not elsewhere classified; K76.0 Fatty (change of) liver, not elsewhere classified; E03.9 Hypothyroidism, unspecified; F41.9 Anxiety disorder, unspecified; K21.9 Gastro-esophageal reflux disease without esophagitis; M25.532 Pain in left wrist; Z79.899 Other long term (current) drug therapy; Z90.49 Acquired absence of other specified parts of digestive tract; Z90.710 Acquired absence of both cervix and uterus; E11.65 Type 2 diabetes mellitus with hyperglycemia
CPT/HCPCS: 36415; 71045; 73030; 73221; 76705; 80048; 80053; 81001; 82948; 83036; 83690; 83735; 83880; 84439; 84443; 84484; 85025; 85027; 85651; 86140; 87426; 87804; 93005; 93306; G0378; J0360; J1650; J1815; J1885; J2060; J2270; J2405; J3475; J3490; J7030; J7040; J7050

== ENCOUNTER 2024-12-02 09:56 | Emergency (ER) | payer OTHER ==
[~2024-12-02] VITALS: Ht 149.9 cm; Wt 92.5 kg
[~2024-12-02 09:56] MED LIST changes: -APIX2.5T PO; +ATOR20TA65 PO; -DOCU-133 PO; +DULO30CA52 PO; +ERGO500093 PO; -FENO160T16 PO; -HYDR-4457 PO; +METF-444 PO; -METF-526 PO; +NIFE-40 PO; +OSEL75 PO; -OXYB-66 PO; +PIOG30TA70 PO; -SIMV-43 PO
[2024-12-02 09:57] VITALS: BP 157/73; PULSE 61; RESP 16; TEMP 98.2; O2SAT 99
--- NOTE | 2024-12-02 10:02 | NUR ---
SLING PROVIDED AND EDUCATION GIVEN
[2024-12-02] MEDS ORDERED: METH-662 PO (10:08)
[2024-12-02] MEDS ORDERED: DICL20GE TP (10:08)
--- NOTE | 2024-12-02 10:10 | ERN ---
General Chief Complaint: Shoulder Injury/Pain Stated Complaint: RIGHT SHOULDER PAIN Time Seen by MD: 09:58 Source: patient History of Present Illness Initial Comments PATIENT IS A 64-YEAR-OLD FEMALE COMING IN COMPLAINING OF RIGHT SHOULDER PAIN. PATIENT STATES THAT SHE WAS EVALUATED A WEEK AGO AND WAS TOLD SHE HAS A TENDON DAMAGED IN HER RIGHT DELTOID REGION. SHE STATES THAT THE PAIN HAS BEEN ONGOING. PATIENT WAS NOT IMMOBILIZED SHOULDER. Allergies: Coded Allergies: No Known Drug Allergies (Unverified Allergy, Unknown, 07/29/19) Home Meds Active Scripts Oseltamivir Phosphate (Tamiflu) 75 Mg Cap, 75 MG PO BID, #8 CAP 0 Refills Prov:JAN GALLEGOS MD 11/29/24 Nifedipine (Nifedipine ER) 30 Mg Tab.er.24, 60 MG PO BID, #120 TAB 0 Refills Prov:JAN GALLEGOS MD 11/29/24 Reported Medications Pioglitazone HCl (Pioglitazone HCl) 30 Mg Tablet, 1 TAB PO DAILY for 30 Days, #30 TAB 0 Refills 11/26/24 Metformin HCl (Metformin HCl) 500 Mg Tablet, 1 TAB PO BID for 30 Days, #60 TAB 0 Refills 11/26/24 Ergocalciferol (Vitamin D2) (Vitamin D2) 1,250 Mcg (42040 Unit) Capsule, 1 CAP PO THU,BILLY for 28 Days, #4 CAP 0 Refills 11/26/24 Duloxetine HCl (Duloxetine HCl) 30 Mg Capsule.dr, 1 CAP PO DAILY for 30 Days, #30 CAP 0 Refills 11/26/24 Atorvastatin Calcium (Atorvastatin Calcium) 20 Mg Tablet, 1 TAB PO DAILY for 30 Days, #30 TAB 0 Refills 11/26/24 Levothyroxine Sodium (Levothroid/Synthroid) 100 Mcg Tab, 100 MCG PO DAILY, TAB 07/29/19 Escitalopram Oxalate (Escitalopram Oxalate) 20 Mg Tablet, 20 MG PO HS, TAB 07/29/19 Olmesartan/Hydrochlorothiazide (Olmesartan-Hctz 20-12.5 mg Tab) 1 Each Tablet, 1 EACH PO DAILY, TAB 07/29/19 Omeprazole (Omeprazole) 40 Mg Capsule.dr, 40 MG PO DAILY, CAP 07/29/19 Discontinued Reported Medications Semaglutide (Ozempic) 1 Mg/0.75 Ml (4 Mg/3 Ml) Pen.injctr, 1 MG SQ QWEEK for 30 Days, #3 ML 0 Refills 11/26/24 Docusate Sodium (Dulcolax Stool Softener) 100 Mg Capsule, 100 MG PO HS, CAP 07/29/19 Simvastatin (Simvastatin) 20 Mg Tablet, 20 MG PO HS, TAB 07/29/19 Metformin HCl (Metformin HCl ER) 500 Mg Tab.er.24, 500 MG PO HS 07/29/19 Fenofibrate (Fenofibrate) 160 Mg Tablet, 160 MG PO DAILY, TAB 07/29/19 Oxybutynin Chloride (Oxybutynin Chloride ER) 5 Mg Tab.er.24, 5 MG PO DAILY 07/29/19 Discontinued Scripts Hydrocodone/Acetaminophen ([place] 5-325 Tablet) 1 Each Tablet, 1-2 EACH PO Q6HPRN PRN for pain, #60 TAB Prov:PHONG MINER MD 08/02/19 Apixaban (Eliquis) 2.5 Mg Tablet, 2.5 MG PO BID, #40 TAB Prov:PHONG MINER MD 08/02/19 Past Medical History Past Medical History: Arthritis, Diabetes-Type II, High Cholesterol, Hypertension Medical History Other: CHRONIC BACK/KNEE PAIN Past Surgical History: Hysterectomy, Cholecystectomy Surgical History Other: BACK, KNEE, SHOUDER Female( History) History: Not Applicable ROS Dictation CONSTITUTIONAL: NO CHILLS, NO FEVER, NO WEAKNESS, NO DIAPHORESIS, NO MALAISE. HEAD/FACE: NO SIGNS OF TRAUMA. EENT: NO EYE PAIN, NO BLURRED VISION, NO TEARING, NO DOUBLE VISION, NO EAR PAIN, NO EAR DISCHARGE, NO NOSE PAIN, NO NASAL CONGESTION, NO THROAT PAIN, NO THROAT SWELLING, NO MOUTH PAIN. RESPIRATORY: NO COUGH, NO ORTHOPNEA, NO SOB, NO STRIDOR, NO WHEEZING. CARDIOVASCULAR: NO CHEST PAIN, NO EDEMA, NO PALPITATIONS, NO SYNCOPE. GASTROINTESTINAL/ABDOMINAL: NO ABDOMINAL PAIN, NO CONSTIPATION, NO DIARRHEA, NO NAUSEA, NO VOMITING. GENITOURINARY: NO ABNORMAL DISCHARGE, NO DYSURIA, NO FREQUENT URINATION, NO HEMATURIA. NO COMPLAINTS OF PAIN IN THE GENITALS. MUSCULOSKELETAL: NO BACK PAIN, NO GOUT, NO JOINT PAIN, JOINT SWELLING, MUSCLE PAIN, NO MUSCLE STIFFNESS, NO NECK PAIN. INTEGUMENTARY: NO CHANGE IN COLOR, NO CHANGE IN HAIR/NAILS, NO DRYNESS, NO LESION, NO LUMPS, NO RASH. NEUROLOGICAL/PSYCH: NO ANXIETY, NOT DEPRESSED, NO EMOTIONAL PROBLEM, NO HEADACHE, NO NUMBNESS, NO PRE-EXISTING DEFICIT, NO HISTORY OF SEIZURES, NO TREMORS, NO WEAKNESS. HEMATOLOGIC/LYMPHATIC: NOT ANEMIC, NO HISTORY OF BLOOD CLOTS, NO APPARENT BLEEDING, NO BRUISING, GLANDS NOT SWOLLEN. ALL SYSTEMS NEGATIVE, EXCEPT NOTED. Physical Exam Physical Exam Dictation VITAL SIGNS: REVIEWED. GENERAL APPEARANCE: ALERT, ORIENTED X3, NO ACUTE DISTRESS, OBESE. HEAD AND FACE: NON-TRAUMATIC. EYES: PERRL, PINK CONJUNCTIVAS, EYELID NO TRAUMA, ANTERIOR CHAMBER CLEAR. EARS: PINNAS INTACT AND NO SIGNS OF TRAUMA OR ERYTHEMA. EAR CANALS CLEAR AND NO DISCHARGE. TMS NO ERYTHEMA. NOSE: NO DISCHARGE, NO BLEEDING. OROPHARYNX: MOUTH NORMAL, TEETH NO CARIES, TONGUE PINK. PHARYNX CLEAR, NO ERYTHEMA. TONSILS NO EXUDATES, NO ABSCESSES NOTED. MUCOUS MEMBRANE MOIST. NECK: SUPPLE, NON-TENDER, NO THYROMEGALY, NO MASSES, NO JVD, NO BRUITS. BREAST: DEFERRED. CHEST: NO TENDERNESS, NO CREPITUS, NO PARADOXICAL MOVEMENT, NO RETRACTIONS. LUNGS: CLEAR, WELL-VENTILATED, SYMMETRIC, NO RALES, NO WHEEZING, NO RHONCHI, NO STRIDOR, GOOD BREATH SOUNDS BILATERALLY. HEART: REGULAR RATE, REGULAR RHYTHM, NO MURMUR, NO GALLOPS. VASCULAR: NO PERIPHERAL EDEMA. ABDOMEN: SOFT, POSITIVE BOWEL SOUNDS, NONDISTENDED, NO GUARDING, NONTENDER, NO REBOUND, NO MASSES NO HEPATOMEGALY, NO SPLENOMEGALY, NO MONROY'S SIGN, NO HERNIAS. RECTAL: DEFERRED. GENITAL: DEFERRED. NEUROLOGICAL: NORMAL SPEECH, GROSS MOTOR FUNCTION INTACT, GROSS SENSORY FUNCTION INTACT. MUSCULOSKELETAL: NECK NONTENDER, FULL RANGE OF MOTION, BACK NONTENDER, FULL RANGE OF MOTION. EXTREMITIES: NONTENDER, FULL RANGE OF MOTION. RIGHT SHOULDER PAIN ON ABDUCTION SKIN: COLOR PINK, DRY, NO TURGOR, NO RASH, NO LACERATIONS, NO ABRASIONS, NO CONTUSIONS. LYMPHATICS: DEFERRED. Results Laboratory and Microbiology Labs Reviewed?: Yes EKG/XRAY/US/CT/MRI Ultrasound Comment [place] [id number] [place] [address] [id number] IMAGING REPORT Signed PATIENT: ARIANNE CORONA MR#: [id number] : 1960 SEX: F AGE: 64 LOCATION: 2AH ORDER 0 STATUS: ADM IN REPORT#: [id number] SERVICE 9 REASON: Pain, concern for rotator cuff/ligamentous tear ORDERING PHYSICIAN: JAN GALLEGOS MD PROCEDURE: ROSEMARY RT WO - MR SHOULDER RIGHT WO MR SHOULDER RIGHT WO HISTORY: Pain COMPARISON: None TECHNIQUE: MRI of the right shoulder was performed utilizing multiple pulse sequences in axial, coronal and sagittal planes. Patient was not given contrast through intravenous route. FINDINGS: No abnormal signal intensity is seen of the visualized bony structure. Hypertrophic degenerative changes are seen of the acromioclavicular joint. There is downward sloping of acromion in a medial to lateral direction encroaching upon the rotator cuff tendon and muscles. There is rotator cuff tendinosis with partial undersurface tear. Soft tissue edema is seen surrounding the rotator cuff tendon. There are motion artifacts degrading the image quality. No definite fluid is seen in the subacromial-subdeltoid bursa complex. Degenerative changes are seen. The glenoid labrum is intact. Bicipital tendon is seen within its groove. No appreciable amount of joint effusion is seen. IMPRESSION: 1. There is rotator cuff tendinosis with partial undersurface tear. Soft tissue edema is seen surrounding the rotator cuff tendon. There are motion artifacts degrading the image quality. No definite fluid is seen in the subacromial-subdeltoid bursa complex. Degenerative changes are seen. DICTATED BY: ROYER GORDON MD DATE: 11/28/241408 ELECTRONICALLY SIGNED BY: ROYER GORDON MD DATE: 11/28/24 1412 [facility] MDM: DIFFERENTIAL DIAGNOSIS: RIGHT SHOULDER PAIN, DELTOID PAIN, DELTOID STRAIN, LIGAMENT TEAR, PATIENT IS A 64-YEAR-OLD FEMALE COMING IN TO BE EVALUATED FOR RIGHT SHOULDER PAIN. PATIENT STATES THAT SHE WAS EVALUATED WITH A MRI AND WAS TOLD SHE HAS A INFLAMED/DAMAGE TENDON. SLING WAS APPLIED PAIN IMPROVED PATIENT ALSO RECEIVED ANTISPASMODICS AND CK MED STORIES. PATIENT WILL BE DISCHARGED IN STABLE CONDITION WITH A DIAGNOSIS OF DELTOID TEAR. ED Course Vital Signs Date Time Temp Pulse Resp B/P (MAP) Pulse Ox O2 Delivery O2 Flow Rate FiO2 12/02/24 09:57 98.2 61 16 157/73 98 Room Air 0 12/02/24 09:57 98.2 61 16 157/73 99 Room Air* 0 21 DX & DISP Disposition: Discharge Departure Impression: Primary Impression: Tear of deltoid muscle Condition: Stable Scripts Diclofenac Sodium (Voltaren Arthritis Pain) 1 % Gel..gram. 4 GM TP BID for 7 Days, #1 TUBE Prov: TYESHA FULLER MD 12/02/24 Methocarbamol (Robaxin) 750 Mg Tab 1 TAB PO BID for 5 Days, #10 TAB 0 Refills Prov: TYESHA FULLER MD 12/02/24 Additional Instructions: FOLLOW-UP WITH PRIMARY CARE PROVIDER IN 1 TO 2 DAYS. TAKE MEDICATIONS DIRECTED HERE IN THE EMERGENCY ROOM. OKAY TO CONTINUE HOME MEDICATIONS UNLESS OTHERWISE DISCUSSED DURING YOUR VISIT IN THE EMERGENCY ROOM TODAY. RETURN TO YOUR NEAREST EMERGENCY ROOM IF SYMPTOMS WORSEN OR IF THERE IS NO IMPROVEMENT. CALL 911 IF YOU NEED IMMEDIATE ASSISTANCE. TAKE TYLENOL [id number] NEEDED AND IF NO CONTRAINDICATIONS ARE PRESENT. INCREASE ORAL HYDRATION. A WOUND CULTURE OR URINE CULTURE WAS ORDERED HERE IN THE EMERGENCY ROOM DEPARTMENT PLEASE FOLLOW-UP WITH PRIMARY CARE PROVIDER AND ADVISE THEM TO GET REPEAT PORTS FROM OUR FACILITY. IF YOU HAD ANY AKASH WRAP/SPLINTS THAT WERE APPLIED HERE, PLEASE DO NOT REMOVE THEM UNTIL YOU SEE YOUR PRIMARY CARE OR SPECIALTY. REFERRALS: Referrals: JORDAN ARMANDO (PCP) Time of Disposition: 10:07 TYESHA FULLER MD Dec 02, 2024 10:10
[2024-12-02] MEDS: ketOROlac 15MG/ML VIAL (15MG/ML) IM ONE (11:08)
[2024-12-02] MEDS: ORPHENADRINE 60MG/2ML IM ONE (11:09)
== END 2024-12-02 11:29 | disposition home or self-care (01) ==
LOC: EDH 09:56
DX: S46.011A Strain of muscle(s) and tendon(s) of the rotator cuff of right shoulder, initial encounter (principal); E11.9 Type 2 diabetes mellitus without complications; E78.00 Pure hypercholesterolemia, unspecified; I10 Essential (primary) hypertension; Z79.01 Long term (current) use of anticoagulants; Z79.84 Long term (current) use of oral hypoglycemic drugs; Z79.85 Long-term (current) use of injectable non-insulin antidiabetic drugs; Z79.890 Hormone replacement therapy; Z79.899 Other long term (current) drug therapy; Z90.49 Acquired absence of other specified parts of digestive tract; Z90.710 Acquired absence of both cervix and uterus; X58.XXXA Exposure to other specified factors, initial encounter; Y93.89 Activity, other specified; Y92.89 Other specified places as the place of occurrence of the external cause; Y99.8 Other external cause status
CPT/HCPCS: 99284; 96372 ×2; J1885; J2360

== ENCOUNTER 2025-03-23 05:55 | Day surgery (SDC) | payer OTHER ==
[2025-03-20 12:00] VITALS: BP 231/104; PULSE 56; RESP 18; TEMP 97.2
--- NOTE | 2025-03-20 12:16 | NUR ---
PREOP PTS BLOOD PRESSURE ELEVATED. PT HAD NOT TAKEN NIFEDIPINE. PT INSTRUCTED TO TAKE AND IF NEEDED SHE HAS HYDRALAZINE IF BLOOD PRESSURE STILL ELEVATED. PT VOICED UNDERSTANDING. PT INFORMED OF RISK AND TO CALL 911 IF ANY S/S NOTED.
[2025-03-20 12:22] LABS: BASOPHILS # (AUTO) 0.06 K/uL (0.00-0.20); BASOPHILS % (AUTO) 0.9 % (0.0-5.0); EOSINOPHILS # (AUTO) 0.13 K/uL (0.00-0.70); HEMATOCRIT 37.6 % (36-48); IMMATURE GRANULOCYTE ABSOLUTE 0.02 K/uL (0-1); LYMPHOCYTES # (AUTO) 1.5 K/uL (1.0-4.8); LYMPHOCYTES % (AUTO) 23.2 % (21.0-51.0); MEAN CORPUSCULAR HEMOGLOBIN 28.6 pg (27.0-33.0); MEAN CORPUSCULAR HGB CONC 32.4 g/dL (32.0-36.0); MEAN CORPUSCULAR VOLUME 88.3 fL (79-99); MONOCYTES # (AUTO) 0.4 K/uL (0.1-1.0); MONOCYTES % (AUTO) 6.5 % (3.0-13.0); NEUTROPHILS # (AUTO) 4.3 K/uL (1.8-7.7); NEUTROPHILS % (AUTO) 67.1 % (40.0-77.0); PLATELET COUNT (AUTO) 214 K/uL (130-400); RED BLOOD CELL COUNT(AUTO) 4.26 MIL/uL (4.00-5.50); WHITE BLOOD COUNT (AUTO) 6.5 K/uL (4.8-10.8)
[2025-03-20 12:31] LABS: CREATININE 0.7 mg/dL (0.5-1.0); POTASSIUM 4.5 mmol/L (3.5-5.1)
[2025-03-23] VITALS (14 sets, daily range): BP systolic 147–171; BP diastolic 59–76; PULSE 61–66; RESP 14–18; TEMP 97.3–97.8
[~2025-03-23] VITALS: Ht 149.9 cm; Wt 93.2 kg
[~2025-03-23 05:55] MED LIST changes: -ATOR20TA65 PO; +ATOR40TA71 PO; -ERGO500093 PO; +GABA300C PO; +HYDR25TA67 PO; -METF-444 PO; +METH-812 PO; +NAPR-1194 PO; -NIFE-40 PO; +NIFE-78 PO; -OSEL75 PO; +OXYB5TAB20 PO; -PIOG30TA70 PO; +PIOG45TA64 PO
[2025-03-23] MEDS ORDERED: 0.9%NACL 1000ML 1,000 ML IV ONE (06:41)
[2025-03-23] MEDS ORDERED: LIDOCAINE PF 100MG/5ML (2%) SYRINGE 5ML ONE (07:16)
[2025-03-23] MEDS ORDERED: LIDOCAINE HCL 1% 20 ML VIAL ONE (07:16)
[2025-03-23] MEDS ORDERED: proPOFol 10 MG/ML 20ML VIAL IV ONE (07:18)
[2025-03-23] MEDS ORDERED: MIDAZOLAM HCL 1 MG/ML 2ML VIAL ONE (07:18)
[2025-03-23] MEDS ORDERED: FENTanyl CITRate PF 50 MCG/1 ML 2ML VIAL ONE (07:18)
[2025-03-23] MEDS ORDERED: dexaMETHasone SOD PHOSPHATE 4 MG/ML 1ML VIAL ONE (07:19)
[2025-03-23] MEDS ORDERED: ondanSETRON 4MG INJ ONE (07:19)
[2025-03-23] MEDS ORDERED: LIDOCAINE HCL-MPF 0.5% 50ML VIAL IJ ONE (07:20)
[2025-03-23 07:26] LABS: INR 0.98 (0.85-1.15); PROTHROMBIN TIME 10.4 SEC (9.6-11.6)
[2025-03-23] MEDS: ceFAZolin SODIUM 2 GM VIAL ONE (08:12)
[2025-03-23] MEDS: ceFAZolin SODIUM 1 GM VIAL ONE (08:30)
[2025-03-23] MEDS ORDERED: ketOROlac 30MG VIAL (30MG/ML) ONE (08:33)
[2025-03-23] MEDS: BUPIvacaine/PF 0.25% 30ML VIAL IJ ONE (08:45)
[2025-03-23] MEDS ORDERED: ACET-2079 PO (09:05)
[2025-03-23] MEDS ORDERED: CEPH500B PO (09:05)
--- NOTE | 2025-03-23 09:19 | OP ---
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 Patient brought to the OR for CTR, procedure that she understood, as well as risks, benefits and possible complications and agreed to sign the consent form] DESCRIPTION OF PROCEDURE: [[After adequate general anesthesia was achieved by anesthesia, the arm was prepped and draped in the usual manner. The left arm was prepped and draped in the usual manner/ Then exsanguinated with and Esmarch band and the tourniquet was inflated to 250 mm Hg. Attention was given to the volar aspect of the wrist where after identification of the landmarks we proceeded to make a curvilinear incision through the skin starting at the inter-thenar area and then extending it proximally along the ulnar side of the palmaris longus tendon. The dissection was then extended into the subcutaneous tissue identifying proximally the palmar fascia of the forearm which was then opened and then elevating it to separate from the median nerve and we proceeded then to split proximally under the skin. Then we directed the tenotomy scissors distally and split the fascia down to the carpal ligament protecting the nerve with a [place] retractor. At this point we use this retractor to dissect the synovial tissue from the undersurface of the carpal ligament through the canal and after this was achieved we proceeded to gradually cut through the ligament with the 15 blade in a longitudinal manner having the retractor under the ligament to protect the nerve. Once we reached the distal end of the ligament we proceeded to spread the fibers with a hemostat, the nerve was explored and noted to be intact. The wound was irrigated with antibiotic solution and then we proceeded to infiltrate the periphery of the wound with 1/4% marcaine in the subcutaneous tissue and after this was achieved we proceeded to pack the wound and deflated the tourniquet. Further irrigation was done and minimal bleeders were controlled with the use of the Bovie cautery. The wound was then closed with approximation of the subcutaneous tissue with #3-0 Vicryl inverted stitches and the skin was closed with 3-0 nylon vertical mattress stitches. The wound was covered with Xeroform, 4 x 4 and then we proceeded to apply a soft dressing with cast padding followed by application of an Gomez bandage. The drapes were removed and the patient was transferred to a stretcher and taken to recovery room for follow-up by anesthesia. There were no complications during the procedure.] ESTIMATED BLOOD LOSS: [Less than 5 mL.] PHONG MINER MD March 23, 2025 09:19
--- NOTE | 2025-03-23 10:38 | NUR ---
Full and complete discharge instructions given to Patient and Family both verbally and in writing. Explained SURGICAL procedure precautions and follow up. Neurovascularly intact. Sling appropiate. Family and Patient voiced understanding to Discharge instructions and expectations. All questions answered. PIV removed with catheter tip intact. Home with Family W/C to POV.
== END 2025-03-23 10:30 | disposition home or self-care (01) ==
LOC: DAH 05:55
PROVIDERS: ATTEND Orthopaedic Surgery
DX: G56.02 Carpal tunnel syndrome, left upper limb (principal); M25.532 Pain in left wrist; I10 Essential (primary) hypertension; E11.9 Type 2 diabetes mellitus without complications; E78.5 Hyperlipidemia, unspecified; E03.9 Hypothyroidism, unspecified; M19.90 Unspecified osteoarthritis, unspecified site; K57.90 Diverticulosis of intestine, part unspecified, without perforation or abscess without bleeding; E66.9 Obesity, unspecified; Z79.890 Hormone replacement therapy; Z79.84 Long term (current) use of oral hypoglycemic drugs; Z87.898 Personal history of other specified conditions; Z79.899 Other long term (current) drug therapy; Z90.49 Acquired absence of other specified parts of digestive tract; Z96.653 Presence of artificial knee joint, bilateral; Z90.710 Acquired absence of both cervix and uterus; Z82.3 Family history of stroke; Z82.49 Family history of ischemic heart disease and other diseases of the circulatory system; Z68.38 Body mass index [BMI] 38.0-38.9, adult; Z79.01 Long term (current) use of anticoagulants
CPT/HCPCS: 80048; 85025; 36415 ×2; 64721; 85610; 85730; 82948 ×2; J1100; A4223 ×3; A4663; J3010; J0690 ×2; J7030; J0665; J2003; J2250; J2704; J2405; J1885; J3490; A6223; A4649; A4930 ×2; A5120; A4215; A4213; A4222; A4216

== ENCOUNTER 2025-07-28 08:56 | Day surgery (SDC) | payer OTHER ==
[2025-07-26 11:22] LABS: IMMATURE GRANULOCYTE ABSOLUTE 0.03 K/uL (0-1); NUCLEATED RED BLOOD CELLS 0.0 % (0.0-0.19); PLATELET COUNT (AUTO) 205 K/uL (130-400); RED BLOOD CELL COUNT(AUTO) 4.12 MIL/uL (4.00-5.50); RED CELL DISTRIBUTION WIDTH 13.2 % (11.0-15.5); WHITE BLOOD COUNT (AUTO) 8.4 K/uL (4.8-10.8)
[2025-07-26 11:31] LABS: CREATININE 0.6 mg/dL (0.5-1.0); GLOMERULAR FILTR. RATE CALC 100.0 mL/min (>90); GLUCOSE,RANDOM 163.0 mg/dL (70-105); SODIUM SERUM 137.0 mmol/L (136-145); UREA NITROGEN, BLOOD 16.0 mg/dL (7-18)
[2025-07-26 11:52] VITALS: BP 137/59; PULSE 50; RESP 16; TEMP 98
[~2025-07-28] VITALS: Ht 149.9 cm; Wt 93.9 kg
[2025-07-28] VITALS (16 sets, daily range): BP systolic 117–149; BP diastolic 49–68; PULSE 53–78; RESP 12–20; TEMP 97.4–98.2
[~2025-07-28 08:56] MED LIST changes: +DOCU-132 PO; -HYDR25TA67 PO; -METH-812 PO; -OXYB5TAB20 PO
[2025-07-28] MEDS ORDERED: 0.9%NACL 1000ML 1,000 ML IV ONE (09:07)
[2025-07-28] MEDS ORDERED: MIDAZOLAM HCL 1 MG/ML 2ML VIAL ONE (12:40)
[2025-07-28] MEDS ORDERED: LIDOCAINE PF 100MG/5ML (2%) SYRINGE 5ML ONE (12:41)
[2025-07-28] MEDS ORDERED: SUCCINYLCHOLINE CHLORIDE 20 MG/ML 10 ML VIAL ONE (12:42)
[2025-07-28] MEDS ORDERED: GLYCOPYRROLATE 0.2 MG/ML 5 ML VIAL ONE (14:15)
[2025-07-28] MEDS ORDERED: SUGAMMADEX SODIUM 200 MG/2 ML VIAL IV ONE (16:03)
[2025-07-28] MEDS ORDERED: HYDR-4060 PO (16:39)
--- NOTE | 2025-07-28 17:06 | OP ---
Operative Note: DATE OF PROCEDURE: 07/28/25 SURGEON: PHONG MINER MD USER EXPERIENCE TEAM LEAD: [Lucina Briones CFA] ANESTHESIA: [General anesthesia plus regional block] ANESTHESIOLOGIST/HOME THEATER SPECIALIST: [Leatha Abdi CRNA] PREOPERATIVE DIAGNOSIS: [Right shoulder pain, incomplete supraspinatus tear, impingement, AC joint arthrosis] POSTOPERATIVE DIAGNOSIS: [Same] PROCEDURE: [Right shoulder arthroscopic supraspinatus 3rd debridement, subacromial bursectomy, decompression and distal clavicle resection.] ESTIMATED BLOOD LOSS: [Tense mL] INDICATIONS: [The patient is a 64-year-old female with history of pain to the right shoulder that has a longer responded to conservative treatment. The MRIs shows the presence of a seems to be an intra-articular partial tear of the supraspinatus, as well as AC joint arthrosis. The patient is being admitted for arthroscopic procedure that she understood, risks, benefits and possible complications and agreed to sign the consent form] DESCRIPTION OF PROCEDURE: [After adequate general anesthesia was achieved and regional block obtained the patient was placed in the beach chair position and the right upper extremity was prepped and draped in the usual manner. After identification of the bony landmarks we proceeded to make a small incision in the posterior aspect of the shoulder subacromial area through the skin followed by blunt dissection with the arthroscopic trocar entering into the shoulder joint removing the trocar and applying the arthroscope into the sheath. After inflating the joint with fluid, evaluation of the joint revealed normal subscapularis, biceps tendon, labrum, glenohumeral joint surfaces as well as the rotator cuff infraspinatus tendon. The supraspinatus tendon demonstrated the presence of an intra-articular tear that involved no more than 15% of the attachment of the torn tissue was sharply debrided with the use of the electrocautery, after a small diameter cannula was inserted anteriorly previous incision through the skin and removal of the trocar from the cannula. We then proceeded to remove the arthroscope from the joint and after reapplying the trocar into the sheath we redirected it and inserted it into the subacromial space. Once again we switch the trocar for the arthroscope and evaluation of the subacromial space revealed significant amount of bursal tissue and a second incision was made in the lateral aspect of the subacromial area through the skin and then with a blunt trocar we proceeded to enter this area followed by application of the thermal ablator proceeding then to remove most of the bursal tissue opening the subacromial space noticing that there was mild impingement due to the acromial hypertrophy and the acromioclavicular joint arthrosis present. With the use of the shaver and through the lateral cannula we proceeded to continue cleaning the subacromial space and we finally expose the rotator cuff and finding that the insertion was normal. At this point we proceeded then to start the decompression with the use of the bur starting with the subacromial area removing the tip of the acromion first and then proceeding posteriorly and once completed we then pay attention to the distal end of the clavicle removing the inferior two thirds. Once the distal clavicle was resected we then proceeded to remove the debris from the subacromial area then the fluid and the arthroscope. The incisions were then closed with 2-0 Monocryl inverted stitches followed by application of Dermabond to seal the incisions and then they were covered with a small Telfa dressings and OpSite's. The drapes were then removed and the patient was placed in an arm sling. The bed was placed in the supine position and the patient was transferred to a stretcher and taken to recovery room for follow-up by anesthesia. There were no complications during the procedure.] PHONG MINER MD Jul 28, 2025 17:05
== END 2025-07-28 18:10 | disposition home or self-care (01) ==
LOC: DAH 08:56
PROVIDERS: ATTEND Orthopaedic Surgery
DX: M75.111 Incomplete rotator cuff tear or rupture of right shoulder, not specified as traumatic (principal); M75.41 Impingement syndrome of right shoulder; M19.011 Primary osteoarthritis, right shoulder; M67.819 Other specified disorders of synovium and tendon, unspecified shoulder; I10 Essential (primary) hypertension; E03.9 Hypothyroidism, unspecified; E11.9 Type 2 diabetes mellitus without complications; E78.5 Hyperlipidemia, unspecified; E66.9 Obesity, unspecified; Z68.41 Body mass index [BMI] 40.0-44.9, adult; Z90.49 Acquired absence of other specified parts of digestive tract; Z79.890 Hormone replacement therapy; Z82.49 Family history of ischemic heart disease and other diseases of the circulatory system; Z79.899 Other long term (current) drug therapy; Z98.890 Other specified postprocedural states
CPT/HCPCS: 80048; 85025; 36415; 29827; 29824; 29826; 64415; 82948 ×2; A4663; J7030 ×2; A4565; J3010; J1100; J0330; J3490 ×4; J2003; J0169 ×3; J2250; J2704; J2405; J2371; J0690 ×2; A6204; A4930 ×2; A5120; A4215; A4223; A4213; A4222; A4221; A4216; A4600